=== PATIENT | male | born 1965 | race Caucasian/White ===

== ENCOUNTER 2017-01-29 16:25 | Inpatient (IN) | payer BC ==
[~2017-01-29] VITALS: Ht 177.8 cm; Wt 118.9 kg
[~2017-01-29 16:25] MED LIST: ATOR10TA66 PO; HYDR-3812 PO; IBUP-2055 PO; LEVO500T2 PO; LEVO750T9 PO; LOSA1TAB23 PO; METF1000 PO; METR500T PO
--- OUTSIDE RECORDS SUMMARY | 2017-01-29 16:46 | XMS REPORT | Continuity of Care Document ---
Author Author [employer] Organization [place] Address Unknown Phone Unavailable Care Team Providers Care Movement Assembly Final Inspector Name Role Phone [employer] Unavailable Unavailable Problems Problem Status Onset Date Classification Date Reported Comments Source Diverticulitis (disorder) Diagnosis 05/30/2016 [facility] Glycosuria (finding) 2015 Diagnosis 05/29/2016 [facility] Abdominal pain (finding) Diagnosis 05/29/2016 [facility] Diabetes mellitus type 2 (disorder) 05/25/2016 Diagnosis 05/29/2016 [facility] Coronary arteriosclerosis (disorder) 04/26/2016 Diagnosis 04/30/2016 [facility] Mixed hyperlipidemia (disorder) 04/17/2016 Diagnosis [facility] Hypertensive disorder, systemic arterial (disorder) 04/17/2016 Diagnosis 04/21/2016 [facility] Calcification of coronary artery (disorder) 04/17/2016 Diagnosis 04/21/2016 [facility], [facility] Hyperlipidemia (disorder) Diagnosis 03/03/2016 [facility] No data available for this section Problem 07/24/2016 [facility], [facility] Medications Medication Details Route Status Patient Instructions Ordering Provider Order Date Source No Known Medications No known medications Active [facility] Allergies, Adverse Reactions, Alerts Immunizations Immunization Date Given Site Status Last Updated Comments Source No data available for this section No data available for this section [facility], [facility] Cardiology Services Results Vital Signs Encounters Location Location Details Encounter Type Encounter Number Reason For Visit Attending Provider ADM Date DC Date Status Source [facility] Cancel/No Show [id number] . LAB [facility] 02/02/2016 02/02/2016 [facility] Cancel/No Show [id number] Josue Brown 02/07/2016 02/09/2016 [facility] [id number] . [facility] 02/14/2016 02/15/2016 [facility] [id number] Josue Brown 02/28/2016 02/29/2016 [facility] [id number] Outpatient [id number] Josue Brown 03/11/2016 [facility] [place] [facility] [id number] Josue Brown 03/20/2016 03/21/2016 [facility] [id number] Josue Brown II 04/17/2016 04/18/2016 [facility] Cardiology Services [place] [facility] [id number] Josue Brown 04/26/2016 [facility]27[id number] [id number] Tadnm Chris 05/25/2016 05/25/2016 Active [facility] [id number] Yana Morin 05/25/2016 05/26/2016 [facility] [id number] Clinic ( Outpatient) [id number] [facility] 2016 Active [facility] [id number] [facility] 07/20/2016 07/20/2016 [facility] [id number] Clinic ( Outpatient) [id number] Josue Brown 07/26/2016 Active [facility] [id number] Josue Brown 07/26/2016 07/20/2016 [facility] Procedures Procedure Code Date Perfomer Comments Source No data available for this section [facility] None [facility] Medicine - [place] Plan of Care Social History Assessment and Plan Family History Value Date Source Advance Directives Order Name Results Value Date Source
[2017-01-29] MEDS ORDERED: CETI1TAB61 PO (17:04)
[2017-01-29] MEDS ORDERED: GLIM4TAB PO (17:04)
[2017-01-29] MEDS ORDERED: LOSA1TAB23 PO (17:04)
[2017-01-29] MEDS ORDERED: ACETAMINOPHEN 500 MG TAB (TYLENOL) PO ONE (17:15)
[2017-01-29] MEDS ORDERED: IBUPROFEN 800 MG (MOTRIN) TAB PO ONE (17:15)
[2017-01-29] MEDS ORDERED: NS IV 1000 ML 1,000 ML IV SCH (17:15)
[2017-01-29] MEDS ORDERED: LIDOCAINE 2% 20 ML (XYLOCAINE) VIAL INJ ONE (17:15)
--- NOTE | 2017-01-29 17:19 | ED General ---
General Chief Complaint: Bite-Animal/Human/Insect Stated Complaint: POSS SPIDER BITE ON BACK Nursing Triage Note: c/o spot on back with fever Nursing Sepsis Screen: No Definite Risk Source of Information: Patient Exam Limitations: No Limitations History of Present Illness Time Seen by Provider: 17:17 Initial Comments To ER with reports of a possible bee sting or spider bite to the middle of his back. He first noticed this yesterday when he was sitting in a tractor. He felt a sharp pain in his back that we did not see anything bite him. The states there has always been an "spot" in this location but normally it is not red. Additionally, he has a fever of 102.4, heart rate of 120 and says that he has some diarrhea and left lower quadrant abdominal pain. He has a history of diverticulitis.. Additionally he also states that 6 months ago he was bitten by a tick and had a red circular spot on the back of his neck though his PCP did not treat for a tickborne illness. Severity: Moderate Allergies and Home Medications Allergies Coded Allergies: No Known Drug Allergies (Unverified , 04/03/15) Home Medications Cetirizine HCl/Pseudoephedrine 1 Each Tab.er.12h, (Reported) Glimepiride 4 Mg Tablet, (Reported) Losartan/Hydrochlorothiazide 1 Each Tablet, (Reported) Constitutional: see HPI, chills, fever EENTM: see HPI Respiratory: no symptoms reported Cardiovascular: no symptoms reported Gastrointestinal: abdominal pain Genitourinary: no symptoms reported Musculoskeletal: see HPI Skin: see HPI Psychiatric/Neurological: No Symptoms Reported Hematologic/Lymphatic: No Symptoms Reported Immunological/Allergic: no symptoms reported Past Nfwvmhm-Fjrszo-Bytnfq Hx Patient Social History Alcohol Use: Denies Use Recreational Drug Use: No Type Used: Pipe Recent Foreign Travel: No Contact w/Someone Who Travel: No Recent Infectious Disease Expo: No Seasonal Allergies Seasonal Allergies: Yes Surgeries History of Surgeries: No Respiratory History of Respiratory Disorde: No Cardiovascular History of Cardiac Disorders: Yes (HIGH TRIGLYCERIDES) Cardiac Disorders: High Cholesterol, Hypertension Neurological History of Neurological Disord: No Reproductive System Hx Reproductive Disorders: No Genitourinary History of Genitourinary Disor: No Gastrointestinal History of Gastrointestinal Di: Yes Gastrointestinal Disorders: Colitis, Chronic Diarrhea Musculoskeletal History of Musculoskeletal Dis: No Endocrine History of Endocrine Disorders: Yes Endocrine Disorders: Diabetes, Non-Insulin dep Cancer History of Cancer: No Psychosocial History of Psychiatric Problem: No Integumentary History of Skin or Integumenta: No Blood Transfusions History of Blood Disorders: No Family Medical History Family Medial History: COLITIS G8 BROTHER DRUG ABUSE Drug abuse G8 BROTHER Hypertension 19 MOTHER LUNG CANCER 19 FATHER Physical Exam Vital Signs Vital Sign - Last 12Hours 01/29/17 17:00 Temp 102.3 Pulse 124 Resp 18 B/P (MAP) 122/84 Pulse Ox 96 Capillary Refill : Less Than 3 Seconds General Appearance: No Apparent Distress, WD/WN, Obese Eyes: Bilateral Eye Normal Inspection, Bilateral Eye PERRL, Bilateral Eye EOMI HEENT: PERRL/EOMI, TMs Normal Respiratory: No Accessory Muscle Use, No Respiratory Distress Cardiovascular: Regular Rate, Rhythm, Normal Peripheral Pulses Gastrointestinal: Normal Bowel Sounds, Soft, Other (he does have left lower quadrant abdominal tenderness.) Extremity: Normal Capillary Refill, Normal Inspection Neurologic/Psychiatric: Alert, Oriented x3, No Motor/Sensory Deficits Skin: Normal Color, Warm/Dry, Other (there is a 2 cm area of erythema and tenderness to the middle of his back. This appears to be a sebaceous cyst that is inflamed or infected.) Focused Exam Evaluation Lactate Level Laboratory Tests 01/29/17 17:05: Lactic Acid Level 1.95 Lactic Acid Level Laboratory Tests Test 01/29/17 17:05 Lactic Acid Level 1.95 MMOL/L (0.50-2.00) I&D : Blade Size: 15 Packing/Drain: 1/4 [place] Drain Progress Anesthetized with 3 mL of 2 percent lidocaine without epinephrine. A 1 similar incision was then made. Dissected down to the cyst wall. Unfortunately the cyst wall was cut in the cyst was not able to be removed in whole. However we did remove quite a bit of the cyst wall in addition to some cyst contents which were curd-like whitish material. A 1/4 inch Jody drain was sutured in place with one single suture. Covered with gauze. Progress/Results/Core Measures Results/Orders Lab Results Laboratory Tests Test 01/29/17 17:05 Range/Units White Blood Count 14.4 H 4.3-11.0 10^3/uL Red Blood Count 4.69 4.35-5.85 10^6/uL Hemoglobin 15.1 13.3-17.7 G/DL Hematocrit 42 40-54 % Mean Corpuscular Volume 89 80-99 FL Mean Corpuscular Hemoglobin 32 25-34 PG Mean Corpuscular Hemoglobin Concent 36 32-36 G/DL Red Cell Distribution Width 12.2 10.0-14.5 % Platelet Count 214 130-400 10^3/uL Mean Platelet Volume 10.0 7.4-10.4 FL Neutrophils (%) (Auto) 80 H 42-75 % Lymphocytes (%) (Auto) 8 L 12-44 % Monocytes (%) (Auto) 10 0-12 % Eosinophils (%) (Auto) 2 0-10 % Basophils (%) (Auto) 0 0-10 % Neutrophils # (Auto) 11.5 H 1.8-7.8 X 10^3 Lymphocytes # (Auto) 1.1 1.0-4.0 X 10^3 Monocytes # (Auto) 1.5 H 0.0-1.0 X 10^3 Eosinophils # (Auto) 0.3 0.0-0.3 10^3/uL Basophils # (Auto) 0.0 0.0-0.1 10^3/uL Neutrophils % (Manual) 81 % Lymphocytes % (Manual) 9 % Monocytes % (Manual) 7 % Eosinophils % (Manual) 3 % Blood Morphology Comment NORMAL Sodium Level 136 135-145 MMOL/L Potassium Level 3.7 3.6-5.0 MMOL/L Chloride Level 100 98-107 MMOL/L Carbon Dioxide Level 22 21-32 MMOL/L Anion Gap 14 5-14 MMOL/L Blood Urea Nitrogen 16 7-18 MG/DL Creatinine 1.28 0.60-1.30 MG/DL Estimat Glomerular Filtration Rate 59 BUN/Creatinine Ratio 13 Glucose Level 271 H 70-105 MG/DL Lactic Acid Level 1.95 0.50-2.00 MMOL/L Calcium Level 9.0 8.5-10.1 MG/DL Total Bilirubin 0.8 0.1-1.0 MG/DL Aspartate Amino Transf (AST/SGOT) 32 5-34 U/L Alanine Aminotransferase (ALT/SGPT) 55 0-55 U/L Alkaline Phosphatase 81 40-136 U/L Total Protein 7.7 6.4-8.2 GM/DL Albumin 4.0 3.2-4.5 GM/DL My Orders Orders - QUINTEN HUERTA DENTAL RESIDENT Cbc With Automated Diff (01/29/17 17:08) Comprehensive Metabolic Panel (01/29/17 17:08) Blood Culture (01/29/17 17:08) Saline Lock/Iv-Start (01/29/17 17:08) Chest Pa/Lat (2 View) (01/29/17 17:08) Ct Abdomen/Pelvis W (01/29/17 17:08) Lactic Acid Analyzer (01/29/17 17:08) Ns Iv 1000 Ml (Sodium Chloride 0.9%) (01/29/17 17:15) Lidocaine 2% Injection 20 Ml (Xylocaine (01/29/17 17:15) Acetaminophen Tablet (Tylenol Tablet) (01/29/17 17:15) Ibuprofen Tablet (Motrin Tablet) (01/29/17 17:15) Tick Panel With Lyme Eia (01/29/17 17:19) Manual Differential (01/29/17 17:05) Medications Given in ED Current Medications Medications Dose Ordered Sig/Geoff Route Start Time Stop Time Status Last Admin Dose Admin Acetaminophen 1,000 mg ONCE ONCE PO 01/29/17 17:15 01/29/17 17:16 DC 01/29/17 17:25 1,000 MG Ibuprofen 800 mg ONCE ONCE PO 01/29/17 17:15 01/29/17 17:16 DC 01/29/17 17:25 800 MG Iohexol 100 ml ONCE ONCE IV 01/29/17 17:30 01/29/17 17:31 UNV 01/29/17 18:02 100 ML Sodium Chloride 100 ml ONCE ONCE IV 01/29/17 17:30 01/29/17 17:31 UNV 01/29/17 18:02 80 ML Vital Signs/I&O Vital Sign - Last 12Hours 01/29/17 17:00 Temp 102.3 Pulse 124 Resp 18 B/P (MAP) 122/84 Pulse Ox 96 Blood Pressure Mean: 97 Departure Communication (Admissions) Time/Spoke to Admitting Phy: 18:55 Communication I discussed the case with Dr. Freda Huston who agrees with admission, surgical consult, IV Zosyn. Time/Spoke to Consulting Phy: 18:55 Communication/Consulting Dr. Sidhu agrees to consult. Patient has questions about removing part of his colon to avoid future bouts of this recurrent sigmoid diverticulitis. I advised him that would be a conversation to have with Dr. Sidhu as I do not know these answers. Impression Impression: Primary Impression: Sigmoid diverticulitis Additional Impressions: Sepsis inflamed sebaceous cyst of back Disposition: ADMITTED INPATIENT Condition: Stable Admissions Decision to Admit Reason: Admit from ER (General) Decision to Admit/Date: Jan 29, 2017 Time/Decision to Admit Time: 18:56 Departure-Patient Inst. Referrals: SUMI CAREY MD (PCP/Family) Primary Care Physician QUINTEN HUERTA APRN Jan 29, 2017 17:19
[2017-01-29 17:24] LABS: BASOPHILS % (AUTO) 0 % (0-10); EOSINOPHILS # (AUTO) 0.3 10^3/uL (0.0-0.3); EOSINOPHILS % (AUTO) 2 % (0-10); LYMPHOCYTES # (AUTO) 1.1 X 10^3 (1.0-4.0); LYMPHOCYTES % (AUTO) 8 % (12-44); MEAN CORPUSCULAR HEMOGLOBIN 32 PG (25-34); MEAN CORPUSCULAR HGB CONC 36 G/DL (32-36); MEAN CORPUSCULAR VOLUME 89 FL (80-99); MONOCYTES # (AUTO) 1.5 X 10^3 (0.0-1.0); MONOCYTES % (AUTO) 10 % (0-12); NEUTROPHILS # (AUTO) 11.5 X 10^3 (1.8-7.8); NEUTROPHILS % (AUTO) 80 % (42-75); PLATELET COUNT 214 10^3/uL (130-400); RED BLOOD COUNT 4.69 10^6/uL (4.35-5.85); RED CELL DISTRIBUTION WIDTH 12.2 % (10.0-14.5); WHITE BLOOD COUNT 14.4 10^3/uL (4.3-11.0)
[2017-01-29] MEDS ORDERED: IOHEXOL 350 MG/ML 100 ML (OMNIPAQUE 350) VIAL IV ONE (17:30)
[2017-01-29] MEDS ORDERED: NS 100 ML (IVPB) BAG IV ONE (17:30)
[2017-01-29 17:43] LABS: BILIRUBIN,TOTAL 0.8 MG/DL (0.1-1.0); CREATININE SERUM 1.28 MG/DL (0.60-1.30); POTASSIUM 3.7 MMOL/L (3.6-5.0); TOTAL PROTEIN 7.7 GM/DL (6.4-8.2)
[2017-01-29 17:50] LABS: EOSINOPHILS % (MANUAL) 3 %; LYMPHOCYTES % (MANUAL) 9 %; NEUTROPHILS % (MANUAL) 81 %
--- NOTE | 2017-01-29 18:35 | Diagnostic Imaging Report ---
PROCEDURE: CT abdomen and pelvis with contrast. TECHNIQUE: Multiple contiguous axial images were obtained through the abdomen and pelvis after administration of intravenous contrast. INDICATION: Fever and weakness. Possible spider bite on back. COMPARISON is made with a CT examination from March 01, 2016. FINDINGS: The visualized lung bases demonstrate mild dependent atelectasis. The lungs are otherwise clear. There is no pericardial or pleural effusion. Diffuse hepatic steatosis is demonstrated. There is no focal intrahepatic abnormality. The gallbladder is contracted. There are small gallstones with but no evidence of biliary dilatation. The spleen appears normal. There is a fat-containing left adrenal mass which is unchanged from the prior exam. The right adrenal gland is normal. The pancreas is unremarkable. The kidneys enhance normally and appear nonobstructed. The small and large bowel are normal in caliber without evidence of obstruction. There is severe sigmoid diverticulitis present with marked sigmoid thickening and adjacent fat stranding but no evidence of free air or abscess. There is no free fluid. The appendix is normal. There is moderate stool within the colon. The urinary bladder is unremarkable. There are fat-containing inguinal hernias. There is no pathologic adenopathy. The aorta is normal in caliber. There are degenerative features within the spine but no acute or suspicious osseous abnormality. IMPRESSION: 1. Severe sigmoid diverticulitis with marked sigmoid colonic thickening and adjacent inflammatory fat stranding but no evidence of obstruction, free air or abscess. Given an interval recurrence of diverticulitis at the same level as on prior comparison examination, would recommend followup with colonoscopy after treatment. 2. 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 3. Hepatic steatosis. 4. Cholelithiasis without biliary dilatation or gallbladder distention. Dictated by: Dictated on workstation # [id number]
--- NOTE | 2017-01-29 18:44 | Diagnostic Imaging Report ---
EXAM: PA and lateral chest. INDICATION: Spider bite. Fever and weakness. FINDINGS: The lungs appear clear without focal infiltrate or evidence of effusion. There is no pneumothorax. The heart size and mediastinal contours are appropriate. There is no osseous abnormality. IMPRESSION: No radiographic evidence of an acute cardiopulmonary process. Dictated by: Dictated on workstation # [id number]
[2017-01-29] MEDS ORDERED: PIPERACILLIN SODIUM/TAZOBACTAM 4.5 GM in NS (IVPB) 100 ML IV ONE (19:00)
--- OUTSIDE RECORDS SUMMARY | 2017-01-29 19:18 | XMS REPORT | Continuity of Care Document ---
Author Author [employer] Organization [place] Address Unknown Phone Unavailable Care Team Providers Care Manager Of Case Management Name Role Phone [employer] Unavailable Unavailable Problems Problem Status Onset Date Classification Date Reported Comments Source Diverticulitis (disorder) Diagnosis 05/30/2016 [facility] Glycosuria (finding) 2015 Diagnosis 05/29/2016 [facility] Abdominal pain (finding) Diagnosis 05/29/2016 [facility] Diabetes mellitus type 2 (disorder) 05/25/2016 Diagnosis 05/29/2016 [facility] Coronary arteriosclerosis (disorder) 04/26/2016 Diagnosis 04/30/2016 [facility] Mixed hyperlipidemia (disorder) 04/17/2016 Diagnosis [facility] Hypertensive disorder, systemic arterial (disorder) 04/17/2016 Diagnosis 04/21/2016 [facility] Calcification of coronary artery (disorder) 04/17/2016 Diagnosis 04/21/2016 [facility], [facility] Hyperlipidemia (disorder) Diagnosis 03/03/2016 [facility] No data available for this section Problem 07/24/2016 [facility], [facility] Medications Medication Details Route Status Patient Instructions Ordering Provider Order Date Source No Known Medications No known medications Active [facility] Allergies, Adverse Reactions, Alerts Immunizations Immunization Date Given Site Status Last Updated Comments Source No data available for this section No data available for this section [facility], [facility] Cardiology Services Results Vital Signs Encounters Location Location Details Encounter Type Encounter Number Reason For Visit Attending Provider ADM Date DC Date Status Source [facility] Cancel/No Show [id number] . [facility] 02/02/2016 02/02/2016 [facility] Cancel/No Show [id number] Josue Brown 02/07/2016 02/09/2016 [facility] [id number] . [facility] 02/14/2016 02/15/2016 [facility] [id number] Josue Brown 02/28/2016 02/29/2016 [facility] [id number] Outpatient [id number] Josue Brown 03/11/2016 [facility] [place] [facility] [id number] Josue Brown 03/20/2016 03/21/2016 [facility] [id number] Josue Brown II 04/17/2016 04/18/2016 [facility] Cardiology Services [place] [facility] [id number] Josue Brown 04/26/2016 [facility]/27[id number] [id number] Tadsd Chris 05/25/2016 05/25/2016 Active [facility] [id number] Yana Morin 05/25/2016 05/26/2016 [facility] [id number] Clinic ( Outpatient) [id number] [facility] 2016 Active [facility] [id number] [facility] 07/20/2016 07/20/2016 [facility] [id number] Clinic ( Outpatient) [id number] Josue Brown 07/26/2016 Active [facility] [id number] Josue Brown 07/26/2016 07/20/2016 [facility] Procedures Procedure Code Date Perfomer Comments Source No data available for this section [facility] None [facility] Medicine - [place] Plan of Care Social History Assessment and Plan Family History Value Date Source Advance Directives Order Name Results Value Date Source
[2017-01-29 20:00] VITALS: BP 114/65
[2017-01-29] MEDS ORDERED: NS IV 1000 ML 1,000 ML ONE (20:19)
[2017-01-29] MEDS ORDERED: CATHETER FLUSH 10 ML SYR IV PRN (21:30)
[2017-01-29] MEDS: NS IV 1000 ML 1,000 ML IV SCH (21:30)
[2017-01-29] MEDS ORDERED: fentaNYL INJECTION 100 MCG/2 ML AMP IV PRN (21:30)
[2017-01-29] MEDS: CATHETER FLUSH 10 ML SYR IV SCH (22:55)
[2017-01-30] VITALS: BP 112/59
[2017-01-30] MEDS: PIPERACILLIN/TAZOBACTAM 4.5 GM/NS100 ML IVPB IV SCH ×6 (01:30→16:20)
[2017-01-30] MEDS ORDERED: PIPERACILLIN SODIUM/TAZOBACTAM 4.5 GM in NS (IVPB) 100 ML IV SCH (03:15)
[2017-01-30 03:35] VITALS: BP 140/63
[2017-01-30] MEDS: NS IV 1000 ML 1,000 ML IV SCH ×3 (04:22→21:02)
[2017-01-30] MEDS: ACETAMINOPHEN 325 MG TABLET/CAPLET (TYLENOL) PO PRN ×3 (04:22→18:52)
[2017-01-30] MEDS: CATHETER FLUSH 10 ML SYR IV SCH ×3 (05:26→22:09)
[2017-01-30 06:51] LABS: BASOPHILS % (AUTO) 0 % (0-10); EOSINOPHILS # (AUTO) 0.3 10^3/uL (0.0-0.3); EOSINOPHILS % (AUTO) 3 % (0-10); LYMPHOCYTES # (AUTO) 0.7 X 10^3 (1.0-4.0); LYMPHOCYTES % (AUTO) 9 % (12-44); MEAN CORPUSCULAR HEMOGLOBIN 33 PG (25-34); MEAN CORPUSCULAR HGB CONC 36 G/DL (32-36); MEAN CORPUSCULAR VOLUME 90 FL (80-99); MEAN PLATELET VOLUME 9.9 FL (7.4-10.4); MONOCYTES # (AUTO) 0.8 X 10^3 (0.0-1.0); MONOCYTES % (AUTO) 11 % (0-12); NEUTROPHILS # (AUTO) 5.9 X 10^3 (1.8-7.8); NEUTROPHILS % (AUTO) 77 % (42-75); PLATELET COUNT 145 10^3/uL (130-400); RED BLOOD COUNT 4.09 10^6/uL (4.35-5.85); RED CELL DISTRIBUTION WIDTH 12.3 % (10.0-14.5); WHITE BLOOD COUNT 7.7 10^3/uL (4.3-11.0)
[2017-01-30 08:00] VITALS: BP 135/71
[2017-01-30] MEDS: inSUlin ASPART (NovoLOG) 1 UNIT/0.01 ML (CHARGE PER UNIT) SC SCH ×3 (11:22→21:02)
[2017-01-30] MEDS: IBUPROFEN 600 MG (MOTRIN) TAB PO PRN (11:22)
[2017-01-30 12:00] VITALS: BP 140/76
--- NOTE | 2017-01-30 13:40 | Consultation ---
History of Present Illness History of Present Illness Patient Consulted On(oscar/time) 01/30/17 13:35 Time Seen by Provider: 13:11 History of Present Illness Surgery asked to consult regarding Diverticulitis HPI: Pt presented to ER yesterday with reports of a possible bee sting or spider bite to the middle of his back. He first noticed this yesterday when he was sitting in a tractor. He felt a sharp pain in his back that we did not see anything bite him. The states there has always been an "spot" in this location but normally it is not red. Additionally, he has a fever of 102.4, heart rate of 120 and says that he has some diarrhea and left lower quadrant abdominal pain. He has a history of diverticulitis. CT performed last night read by radiology as "worse Diverticulitis compared with last CT". Previous episode was appx 11 months ago. When seen today pt states pain is minimal, maybe 2-3 out of 10 on 1-10 scale. Denies N/V. He states he gets this LLQ pain weekly and sometimes it last for a few days. He states he gets severe (10 out of 10) pain once a month; "makes me pull the truck over". He reports that he had a colonoscopy about 6 months ago; which showed Diverticulosis and "a couple of polyps". He does not take ABX regularly for the pain; "I use stuff to clean me out". He did have an elevated WBC when he was admitted yesterday; today it is back to normal. Allergies and Home Medications Allergies Coded Allergies: No Known Drug Allergies (Unverified , 04/03/15) Home Medications Cetirizine HCl/Pseudoephedrine 1 Each Tab.er.12h, (Reported) Glimepiride 4 Mg Tablet, PO DAILY, (Reported) Losartan/Hydrochlorothiazide 1 Each Tablet, DAILY, (Reported) Past Elkqnij-Gbfrjp-Bqeljt Hx Patient Social History Alcohol Use: Denies Use Recreational Drug Use: No Smoking Status: Former Smoker Former Smoker, Quit: Jan 29, 1991 Type Used: Cigarettes, Smokeless Tobacco Recent Foreign Travel: Yes Contact w/Someone Who Travel: No Recent Infectious Disease Expo: No Recent Hopitalizations: No Physical Abuse Screen: No Sexual Abuse: No Seasonal Allergies Seasonal Allergies: Yes Surgeries History of Surgeries: No Respiratory History of Respiratory Disorde: No Cardiovascular History of Cardiac Disorders: Yes (HIGH TRIGLYCERIDES) Cardiac Disorders: High Cholesterol, Hypertension Neurological History of Neurological Disord: No Reproductive System Hx Reproductive Disorders: No Genitourinary History of Genitourinary Disor: No Gastrointestinal History of Gastrointestinal Di: Yes Gastrointestinal Disorders: Colitis, Chronic Diarrhea Musculoskeletal History of Musculoskeletal Dis: No Endocrine History of Endocrine Disorders: Yes Endocrine Disorders: Diabetes, Non-Insulin dep HEENT History of HEENT Disorders: No Cancer History of Cancer: No Psychosocial History of Psychiatric Problem: No Integumentary History of Skin or Integumenta: No Blood Transfusions History of Blood Disorders: No Family Medical History Significant Family History: Cancer (Father), GI Disease (Brother), Hypertension (Mother) Family Medial History: COLITIS G8 BROTHER DRUG ABUSE Drug abuse G8 BROTHER Hypertension 19 MOTHER LUNG CANCER 19 FATHER Review of Systems-General Constitutional: No chills, No diaphoresis, No fever, weakness EENTM: No blurred vision, No vision loss, No mouth swelling, No epistaxis, No throat swelling Respiratory: No cough, No dyspnea on exertion, No hemoptysis Cardiovascular: No chest pain, No edema, No palpitations Gastrointestinal: RLQ, LLQ, abdominal pain, diarrhea, No hematemesis Genitourinary: No dysuria, No frequency, No hematuria Musculoskeletal: No back pain, No gout, No joint pain, No joint swelling Skin: No dryness, No hx of skin cancer, No lesions Psychiatric/Neurological: Denies Anxiety, Denies Depressed, Denies Headache, Denies Seizure, Denies Tremors Other Pt does have DM, but denies heat or cold intolerance. Denies any abnormal bleeding or bruising. Physical Exam-General Problems Physical Exam Vital Signs Vital Sign - Last 12Hours 01/29/17 01/29/17 17:00 19:50 Temp 102.3 Pulse 124 Resp 18 B/P (MAP) 122/84 Pulse Ox 96 O2 Delivery Room Air Capillary Refill : Less Than 3 Seconds General Appearance: WD/WN, no apparent distress, obese Eyes: Bilateral Eye PERRL, Bilateral Eye EOMI HEENT: pharynx normal, No scleral icterus (R), No scleral icterus (L), No pale conjunctivae (R), No pale conjunctivae (L) Neck: non-tender, full range of motion, supple, normal inspection Respiratory: chest non-tender, lungs clear, normal breath sounds, no respiratory distress, no accessory muscle use Cardiovascular: regular rate, rhythm, no edema, no murmur Gastrointestinal: soft, no organomegaly, no pulsatile mass, No guarding, tenderness (LLQ mostly, some suprapubic and very minimal RLQ) Rectal: deferred Back: no CVA tenderness, no vertebral tenderness Extremities: normal range of motion, non-tender, normal inspection, no pedal edema, no calf tenderness, normal capillary refill Neurologic/Psychiatric: caponizer II-XII nml as tested, no motor/sensory deficits, alert, normal mood/affect, oriented x 3 Skin: normal color, warm/dry Lymphatic: no adenopathy (neck, axilla or groin) Data Review Labs Laboratory Tests 01/29/17 17:05: White Blood Count 14.4H, Red Blood Count 4.69, Hemoglobin 15.1, Hematocrit 42, Mean Corpuscular Volume 89, Mean Corpuscular Hemoglobin 32, Mean Corpuscular Hemoglobin Concent 36, Red Cell Distribution Width 12.2, Platelet Count 214, Mean Platelet Volume 10.0, Neutrophils (%) (Auto) 80H, Lymphocytes (%) (Auto) 8L , Monocytes (%) (Auto) 10, Eosinophils (%) (Auto) 2, Basophils (%) (Auto) 0, Neutrophils # (Auto) 11.5H, Lymphocytes # (Auto) 1.1, Monocytes # (Auto) 1.5H, Eosinophils # (Auto) 0.3, Basophils # (Auto) 0.0, Neutrophils % (Manual) 81, Lymphocytes % (Manual) 9, Monocytes % (Manual) 7, Eosinophils % (Manual) 3, Blood Morphology Comment NORMAL, Sodium Level 136, Potassium Level 3.7, Chloride Level 100, Carbon Dioxide Level 22, Anion Gap 14, Blood Urea Nitrogen 16, Creatinine 1.28, Estimat Glomerular Filtration Rate 59, BUN/Creatinine Ratio 13, Glucose Level 271H, Lactic Acid Level 1.95, Calcium Level 9.0, Total Bilirubin 0.8, Aspartate Amino Transf (AST/SGOT) 32, Alanine Aminotransferase ( ALT/SGPT) 55, Alkaline Phosphatase 81, Total Protein 7.7, Albumin 4.0 01/30/17 06:30: White Blood Count 7.7, Red Blood Count 4.09L, Hemoglobin 13.3, Hematocrit 37L, Mean Corpuscular Volume 90, Mean Corpuscular Hemoglobin 33, Mean Corpuscular Hemoglobin Concent 36, Red Cell Distribution Width 12.3, Platelet Count 145, Mean Platelet Volume 9.9, Neutrophils (%) (Auto) 77H, Lymphocytes (%) (Auto) 9L , Monocytes (%) (Auto) 11, Eosinophils (%) (Auto) 3, Basophils (%) (Auto) 0, Neutrophils # (Auto) 5.9, Lymphocytes # (Auto) 0.7L, Monocytes # (Auto) 0.8, Eosinophils # (Auto) 0.3, Basophils # (Auto) 0.0 01/30/17 06:48: Glucometer 236H 01/30/17 11:06: Glucometer 266H Assessment/Plan Assessment/Plan Assessment/Plan 1. Diverticulitis 2. DM 3. Obesity I sat down with pt and discussed what Diverticulitis means; versus Diverticulosis. We went over how this occurs and how pressure thru the intestine makes it worse (mostly red meat). I printed out a information packet for Diverticulitis and one for Low Residue diet. I also went over indications for surgery (now it is Diverticulitis episodes that affect ADL's) and why we are trying to avoid what happens with a very bad perforation (ostomy bag). I also went over my reasoning behind keeping him in the hospital for one more day on clear liquids, advancing to soft diet tomorrow for lunch, and then sending him home. He knows that in future he needs to go on clear liquids sooner (not to try and "clean himself out") and probably get ABX sooner from his primary care doctor. All questions answered to his satisfaction. Thank you for this consult. Clinical Quality Measures DVT/VTE Risk/Contraindication: Risk Factor Score Per Nursin RFS Level Per Nursing on Admit: 4+=Very High WOODY BELLA DO Jan 30, 2017 13:40
[2017-01-30] MEDS ORDERED: ATOR10TA66 PO (13:46)
--- NOTE | 2017-01-30 14:11 | History & Physical-Hospitalist ---
HPI History of Present Illness: HPI/Chief Complaint The patient is a 51-year-old white male who was admitted yesterday afternoon after he presented to the emergency room with fever and severe left lower quadrant abdominal pain. He had a sore area on his back which He feared was a spider bite. He proved to be an inflamed epidermal inclusion cyst and was evacuated by [facility] VERITO. Additional workup showed CT findings consistent with severe diverticulitis and inflammation with the sigmoid thickening. He reports that he had a previous episode of this approximately a year ago. He had colonoscopy performed at [place] and a couple of polyps were removed. Several family members have also had diverticulitis. He admits to eating a low bulk diet. His fever was 102+ on presentation. White count was 14,000. He reports that he is already feeling less pain than he experienced yesterday. Source: patient Exam Limitations: no limitations Date Seen 01/30/17 Time Seen by Provider: 14:06 Attending Physician Erinn Montero MD PCP Josue Brown MD Referring Physician Date of Admission Jan 29, 2017 at 18:33 Home Medications & Allergies Home Medications Reviewed patient Home Medication Reconciliation Form Allergies Allergies Coded Allergies No Known Drug Allergies ([id number]/15) Past Waiovzu-Evegve-Joiwlx Hx Patient Social History Alcohol Use: Denies Use Recreational Drug Use: No Smoking Status: Former Smoker Former Smoker, Quit: Jan 29, 1991 Type Used: Cigarettes, Smokeless Tobacco Physical Abuse Screen: No Sexual Abuse: No Recent Foreign Travel: Yes Contact w/other who traveled: No Recent Hopitalizations: No Recent Infectious Disease Expo: No Seasonal Allergies Seasonal Allergies: Yes Surgeries No Respiratory No Cardiovascular Yes (HIGH TRIGLYCERIDES) High Cholesterol, Hypertension Neurological No Reproductive System Hx Reproductive Disorders: No Genitourinary No Gastrointestinal Yes Colitis, Chronic Diarrhea Musculoskeletal No Endocrine History of Endocrine Disorders: Yes Endocrine Disorders: Diabetes, Non-Insulin dep HEENT History of HEENT Disorders: No Cancer No Psychosocial History of Psychiatric Problem: No Integumentary History of Skin or Integumenta: No Blood Transfusions History of Blood Disorders: No Family Medical History Significant Family History: Cancer (Father), GI Disease (Brother), Hypertension (Mother) Family Hx: COLITIS G8 BROTHER DRUG ABUSE Drug abuse G8 BROTHER Hypertension 19 MOTHER LUNG CANCER 19 FATHER Review of Systems Constitutional: see HPI, diaphoresis, fever EENTM: no symptoms reported Respiratory: no symptoms reported Cardiovascular: no symptoms reported Gastrointestinal: see HPI, abdominal pain (LLQ) Genitourinary: no symptoms reported Musculoskeletal: no symptoms reported Skin: other (epidermal inclusion cyst post evacuation mid scapular) Psychiatric/Neurological: No Symptoms Reported Physical Exam Physical Exam Vital Signs Vital Sign - Last 12Hours 01/29/17 01/29/17 17:00 19:50 Temp 102.3 Pulse 124 Resp 18 B/P (MAP) 122/84 Pulse Ox 96 O2 Delivery Room Air Capillary Refill : Less Than 3 Seconds General Appearance: Mild Distress Eyes: Bilateral Eye Normal Inspection HEENT: Normal ENT Inspection Neck: Normal Inspection Respiratory: Chest Non Tender, Lungs Clear, Normal Breath Sounds, No Accessory Muscle Use, No Respiratory Distress Cardiovascular: Regular Rate, Rhythm, No Edema, No Gallop, No JVD, No Murmur, Normal Peripheral Pulses Gastrointestinal: Normal Bowel Sounds, No Organomegaly, No Pulsatile Mass, Non Tender, Soft Back: Other (dressing is noted intrascapular) Extremity: Normal Capillary Refill, Normal Inspection, Normal Range of Motion, Non Tender, No Calf Tenderness, No Pedal Edema Skin: Normal Color, Warm/Dry Lymphatic: No Adenopathy Results Results/Procedures Lab Laboratory Tests 01/29/17 17:05 01/30/17 06:30 Assessment/Plan Admission Diagnosis Sigmoid diverticulitis. 2.epidermal inclusion cyst. Assessment and Plan Clear liquid diet, IV fluids, empiric antibiotics Clinical Quality Measures DVT/VTE Risk/Contraindication: Risk Factor Score Per Nursin RFS Level Per Nursing on Admit: 4+=Very High MASHA WILSON MD Jan 30, 2017 14:11
[2017-01-30 15:40] VITALS: BP 134/67
[2017-01-30 20:14] VITALS: BP 149/76
[2017-01-31 00:30] VITALS: BP 122/69
[2017-01-31] MEDS: PIPERACILLIN/TAZOBACTAM 4.5 GM/NS100 ML IVPB IV SCH ×4 (01:09→09:22)
[2017-01-31] MEDS: IBUPROFEN 600 MG (MOTRIN) TAB PO PRN (02:01)
[2017-01-31 04:00] VITALS: BP 127/58
[2017-01-31] MEDS: NS IV 1000 ML 1,000 ML IV SCH (05:24)
[2017-01-31] MEDS: CATHETER FLUSH 10 ML SYR IV SCH ×2 (06:29→14:01)
[2017-01-31] MEDS: inSUlin ASPART (NovoLOG) 1 UNIT/0.01 ML (CHARGE PER UNIT) SC SCH ×2 (06:30→11:26)
[2017-01-31] MEDS ORDERED: GLIMEPIRIDE 4 MG (AMARYL) TAB PO SCH (07:00)
[2017-01-31 07:54] LABS: LYME AB INTERP Negative (Negative)
[2017-01-31 08:00] VITALS: BP 132/84
--- NOTE | 2017-01-31 08:26 | Progress Note ---
Subjective Time Seen by Provider: 08:01 Subjective/Events-last exam Pt seen and examined, states his pain is "much better today". Denies nausea or vomiting. He is tolerating clears, would like to advance diet and wants to go home. Review of Systems General: No Chills, No Night Sweats HEENT: No Head Aches, No Visual Changes Pulmonary: No Dyspnea, No Cough Cardiovascular: No: Chest Pain, Palpitations Gastrointestinal: No: Nausea, Vomiting, Abdominal Pain Objective Exam Vital Signs Date Time Temp Pulse Resp B/P (MAP) Pulse Ox O2 Delivery O2 Flow Rate FiO2 01/31/17 08:00 97.7 66 20 132/84 96 Room Air 01/31/17 04:00 99.0 82 16 127/58 95 Room Air 01/31/17 00:30 98.9 84 18 122/69 98 Room Air 01/30/17 21:00 99.9 01/30/17 20:14 101.3 90 18 149/76 96 Room Air 01/30/17 18:52 99.2 01/30/17 15:40 98.9 84 18 134/67 94 Room Air 01/30/17 12:00 99.8 88 20 140/76 94 Room Air 01/30/17 08:42 100.7 Capillary Refill : Less Than 3 Seconds General Appearance: No Apparent Distress, WD/WN HEENT: Pharynx Normal, No Pale Conjunctivae (L), No Pale Conjunctivae (R) Neck: Full Range of Motion, Non Tender Respiratory: Chest Non Tender, Lungs Clear, Normal Breath Sounds, No Accessory Muscle Use, No Respiratory Distress Cardiovascular: Regular Rate, Rhythm, No Edema, No Gallop, No JVD, No Murmur, Normal Peripheral Pulses Gastrointestinal: soft, no organomegaly, no pulsatile mass, No guarding, tenderness (LLQ mostly, some suprapubic and very minimal RLQ- now only with deep palpation) Extremity: Normal Capillary Refill, Normal Inspection, Normal Range of Motion, Non Tender, No Calf Tenderness, No Pedal Edema Neurologic/Psychiatric: Alert, Oriented x3 Skin: Normal Color, Warm/Dry Results Lab Laboratory Tests 01/30/17 11:06: Glucometer 266H 01/30/17 15:57: Glucometer 249H 01/30/17 20:20: Glucometer 243H 01/31/17 05:13: Glucometer 198H Microbiology 01/29/17 Blood Culture - Preliminary, Resulted No growth 01/29/17 Gram Stain - Final, Resulted 01/29/17 Wound Culture - Preliminary, Resulted Yuliet Roy Neg (Field [employer]) See Comments Assessment/Plan Assessment/Plan Assessment/Plan 1. Diverticulitis 2. DM 3. Obesity Would recommend switching pt to oral ABX, increase to soft diet and send him home after lunch. I will see him in my office in 2 weeks. We went over some dietary questions he had, no other questions. Clinical Quality Measures DVT/VTE Risk/Contraindication: Risk Factor Score Per Nursin RFS Level Per Nursing on Admit: 4+=Very High WOODY BELLA DO Jan 31, 2017 08:26
[2017-01-31] MEDS ORDERED: ATORVASTATIN 10 MG (LIPITOR) TABLET PO SCH (09:00)
[2017-01-31] MEDS ORDERED: AMOX-358 PO (10:25)
--- NOTE | 2017-01-31 10:26 | Discharge Summary-Hospitalist ---
Diagnosis/Chief Complaint Date of Admission Jan 29, 2017 at 18:33 Date of Discharge Discharge Date: Jan 31, 2017 Admission Diagnosis Sigmoid diverticulitis. 2.epidermal inclusion cyst. Discharge Diagnosis Sigmoid diverticulitis s/p epidermal inclusion cyst I&D in ER Diabetes mellitus Hypertension Hyperlipidemia Obesity Colon polyps Discharge Summary Discharge Physical Examination Allergies: Coded Allergies: No Known Drug Allergies (Unverified , 04/03/15) Vitals & I&Os Vital Signs Date Time Temp Pulse Resp B/P (MAP) Pulse Ox O2 Delivery O2 Flow Rate FiO2 01/31/17 08:00 97.7 66 20 132/84 96 Room Air Hospital Course Hospital course: Patient had a brief hospital course he was admitted placed on IV fluids IV antibiotics empirically and monitor closely including wound care for the cyst that was drained in the ER. All cultures reviewed and he felt well enough after the advancement of his diet that he was deemed stable for discharge from general surgery standpoint and will discharge on antibiotics with close follow-up with general surgery and primary care provider. Labs (last 24 hrs) Laboratory Tests 01/30/17 15:57: Glucometer 249H 01/30/17 20:20: Glucometer 243H 01/31/17 05:13: Glucometer 198H 01/31/17 10:46: Glucometer 259H Microbiology 01/29/17 Blood Culture - Preliminary, Resulted No growth 01/29/17 Gram Stain - Final, Resulted 01/29/17 Wound Culture - Preliminary, Resulted Staph, Coag Neg (Or Manager) See Comments Pending Labs Laboratory Tests 01/31/17 05:13: Glucometer 198 01/31/17 10:46: Glucometer 259 Discharge Home Medications: Active Scripts Active Augmentin 875-125 Tablet (Amoxicillin/Potassium Clav) 1 Each Tablet 1 Each PO BID Reported Atorvastatin Calcium 10 Mg Tablet 10 Mg PO DAILY Losartan-Hctz 100-25 mg Tab (Losartan/Hydrochlorothiazide) 1 Each Tablet 1 Tab PO DAILY Glimepiride 4 Mg Tablet 4 Mg PO DAILY Zyrtec-D Tablet (Cetirizine HCl/Pseudoephedrine) 1 Each Tab.er.12h 1 Tab PO Q12H PRN Instructions to patient/family Please see electonic discharge instructions given to patient. Clinical Quality Measures DVT/VTE Risk/Contraindication: Risk Factor Score Per Nursin RFS Level Per Nursing on Admit: 4+=Very High PORSCHE ALLISON DO Jan 31, 2017 10:26
[2017-01-31 13:54] LABS: EHRLICHIA CHAFFEENSIS G ABY <1:16 (<1:16)
[2017-01-31 14:40] VITALS: BP 132/84
[2017-01-31 15:29] LABS: IGG ROCKY MOUNTAIN SPOTTED FEV <1:16 (<1:16)
[2017-01-31 15:30] LABS: IGM ROCKY MOUNTAIN SPOTTED FEV <1:10 (<1:10)
[2017-02-01 10:22] LABS: TULAREMIA ANTIBODY <1:20
--- NOTE | 2017-02-01 13:53 | Physician Query Clarification ---
PQ-Conflicting Diagnosis Admission/Discharge Admission Date: Jan 29, 2017 at 18:33 Discharge Date: Jan 31, 2017 at 14:45 The medical record reflects the following clinical scenario: History/Risk Factors: History diverticulitis, diabetes Clinical Findings: T102.4, P120, WBC 14.4, lactic acid 1.95, LLQ pain Treatment: IV fluids and IV ABX Question: Do you agree with the impression of Sepsis per ER provider Sedrick Herman? Please document a response below. PHYSICIAN RESPONSE Do you agree w/Consulting Dx?: Yes In responding to this query, please exercise your independent professional judgment. The purpose of this communication is to more accurately reflect the complexity of your patients condition. The fact that a question is asked does not imply that any particular answer is desired or expected. Thank you for your timely response to this clarification. Requestors name: Clay THIS PHYSICIAN QUERY FORM IS A PERMANENT PART OF THE MEDICAL RECORD CLAY BEST Feb 01, 2017 13:53 PORSCHE ALLISON DO Feb 02, 2017 11:13
== END 2017-01-31 14:45 | disposition home or self-care (01) | DRG 872 ==
LOC: EDUNIT# 16:25 → ER 16:27 → 4TH 18:33
PROVIDERS: ADMIT Family Medicine; ATTEND Family Medicine
PROC: 0H96XZZ Drainage of Back Skin, External Approach (ICD-10-PCS; principal; 2017-01-29)
DX: A41.9 Sepsis, unspecified organism (principal); K57.32 Diverticulitis of large intestine without perforation or abscess without bleeding; L72.0 Epidermal cyst; E11.9 Type 2 diabetes mellitus without complications; I10 Essential (primary) hypertension; E78.5 Hyperlipidemia, unspecified; E66.9 Obesity, unspecified; K63.5 Polyp of colon; Z68.37 Body mass index [BMI] 37.0-37.9, adult
CPT/HCPCS: 36415; 71020; 74177; 80053; 82962; 83605; 85007; 85025; 85027; 86618; 86666; 86668; 86757; 87040; 87070; 87205; 96361; 96365

== ENCOUNTER 2019-03-31 11:33 | Day surgery (SDC) | payer BC ==
[~2019-03-31] VITALS: Ht 177.8 cm; Wt 112.0 kg
[~2019-03-31 11:33] MED LIST changes: +ACHD5005 PO; +AMOX-358 PO; +CETI1TAB61 PO; +GLIM4TAB PO; -HYDR-3812 PO; +METF-399 PO; -METF1000 PO
--- NOTE | 2019-03-31 12:02 | ED Chest Pain ---
General Chief Complaint: Chest Pain Stated Complaint: CHEST PAIN Source: patient Exam Limitations: no limitations History of Present Illness Date Seen by Provider: Mar 31, 2019 Time Seen by Provider: 11:48 Initial Comments The patient is a pleasant 54-year-old male presents for evaluation of intermittent chest discomfort which is worse when standing or sitting up. He states it seems to get better when he is lying flat. He took a baby aspirin at home today before coming. He denies any discomfort currently. He does report a family history of cardiac problems. He is a nonsmoker. The discomfort is not pleuritic or exertional. He denies shortness of breath, nausea or vomiting, dizziness, syncope, diaphoresis, palpitations, fevers or chills. He is alert and oriented 4, calm, and appears to be in no distress at this time. Timing/Duration: 2-3 days Severity/Quality: moderate Location: substernal Radiation: no radiation Activities at Onset: none Prior CP/Workup: no prior chest pain ASA po MVA REACTOR OPERATOR: Yes NTG SL MVA REACTOR OPERATOR: No Allergies and Home Medications Allergies Coded Allergies: No Known Drug Allergies (Unverified , 04/03/15) Home Medications Amoxicillin/Potassium Clav 1 Each Tablet, 1 EACH PO BID Prescribed by: PORSCHE ALLISON on 01/31/17 1025 Atorvastatin Calcium 10 Mg Tablet, 10 MG PO DAILY, (Reported) Cetirizine HCl/Pseudoephedrine 1 Each Tab.er.12h, 1 TAB PO Q12H PRN for ALLERGIES, (Reported) Glimepiride 4 Mg Tablet, 4 MG PO DAILY, (Reported) Losartan/Hydrochlorothiazide 1 Each Tablet, 1 TAB PO DAILY, (Reported) Patient Home Medication List Home Medication List Reviewed: Yes Review of Systems Review of Systems Constitutional: no symptoms reported EENTM: No Symptoms Reported Respiratory: No Symptoms Reported, See HPI Cardiovascular: Chest Pain Gastrointestinal: No Symptoms Reported, See HPI Genitourinary: No Symptoms Reported, See HPI Psychiatric/Neurological: No Symptoms Reported, See HPI Endocrine: No Symptoms Reported, See HPI Hematologic/Lymphatic: No Symptoms Reported, See HPI All Other Systems Reviewed Negative Unless Noted: Yes Past Bymcoah-Iolzlz-Ehspsg Hx Past Med/Social Hx: Reviewed Nursing Past Med/Soc Hx Patient Social History Type Used: Cigarettes, Smokeless Tobacco Former Smoker, Quit: Jan 29, 1991 Recent Foreign Travel: Yes ([place], [place], [facility]) Recent Hopitalizations: No Seasonal Allergies Seasonal Allergies: Yes Past Medical History Surgeries: No Respiratory: No Cardiac: Yes (HIGH TRIGLYCERIDES) High Cholesterol, Hypertension Neurological: No Reproductive Disorders: No Genitourinary: No Gastrointestinal: Yes Colitis, Chronic Diarrhea Musculoskeletal: No Endocrine: Yes Diabetes, Non-Insulin dep HEENT: No Cancer: No Psychosocial: No Integumentary: No Blood Disorders: No Family Medical History COLITIS G8 BROTHER DRUG ABUSE Drug abuse G8 BROTHER Hypertension 19 MOTHER LUNG CANCER 19 FATHER Cancer, GI Disease, Hypertension Physical Exam Vital Signs Vital Signs - First Documented 03/31/19 11:42 Temp 36.6 Pulse 89 Resp 20 B/P (MAP) 122/70 (87) Pulse Ox 95 O2 Delivery Room Air Capillary Refill : Height, Weight, BMI Height: 5'10.00" Weight: 262lbs. 1.0oz. [id number]; 37.7 BMI Method:Stated General Appearance: No Apparent Distress, WD/WN HEENT: PERRL/EOMI, Pharynx Normal Neck: Full Range of Motion, Non Tender, Supple Respiratory: Chest Non Tender, Lungs Clear, Normal Breath Sounds, No Accessory Muscle Use, No Respiratory Distress Cardiovascular: Regular Rate, Rhythm, No Edema, No JVD Gastrointestinal: Normal Bowel Sounds, No Pulsatile Mass, Non Tender, Soft Extremity: Normal Capillary Refill, Non Tender, No Calf Tenderness Neurologic/Psychiatric: Alert, Oriented x3, No Motor/Sensory Deficits, Normal Mood/Affect Skin: Normal Color, Warm/Dry Progress/Results/Core Measures Results/Orders Lab Results Laboratory Tests Test 03/31/19 11:50 Range/Units White Blood Count 8.6 4.3-11.0 10^3/uL Red Blood Count 5.00 4.35-5.85 10^6/uL Hemoglobin 16.5 13.3-17.7 G/DL Hematocrit 46 40-54 % Mean Corpuscular Volume 91 80-99 FL Mean Corpuscular Hemoglobin 33 25-34 PG Mean Corpuscular Hemoglobin Concent 36 32-36 G/DL Red Cell Distribution Width 12.0 10.0-14.5 % Platelet Count 240 130-400 10^3/uL Mean Platelet Volume 10.1 7.4-10.4 FL Neutrophils (%) (Auto) 66 42-75 % Lymphocytes (%) (Auto) 20 12-44 % Monocytes (%) (Auto) 8 0-12 % Eosinophils (%) (Auto) 4 0-10 % Basophils (%) (Auto) 1 0-10 % Neutrophils # (Auto) 5.7 1.8-7.8 X 10^3 Lymphocytes # (Auto) 1.7 1.0-4.0 X 10^3 Monocytes # (Auto) 0.7 0.0-1.0 X 10^3 Eosinophils # (Auto) 0.4 H 0.0-0.3 10^3/uL Basophils # (Auto) 0.1 0.0-0.1 10^3/uL Prothrombin Time 12.3 12.2-14.7 SEC INR Comment 0.9 0.8-1.4 Activated Partial Thromboplast Time 26 24-35 SEC Sodium Level 136 135-145 MMOL/L Potassium Level 4.3 3.6-5.0 MMOL/L Chloride Level 96 L 98-107 MMOL/L Carbon Dioxide Level 23 21-32 MMOL/L Anion Gap 17 H 5-14 MMOL/L Blood Urea Nitrogen 20 H 7-18 MG/DL Creatinine 0.88 0.60-1.30 MG/DL Estimat Glomerular Filtration Rate > 60 BUN/Creatinine Ratio 23 Glucose Level 455 *H 70-105 MG/DL Calcium Level 9.0 8.5-10.1 MG/DL Corrected Calcium 8.8 8.5-10.1 MG/DL Magnesium Level 2.0 1.6-2.4 MG/DL Total Bilirubin 0.7 0.1-1.0 MG/DL Aspartate Amino Transf (AST/SGOT) 28 5-34 U/L Alanine Aminotransferase (ALT/SGPT) 37 0-55 U/L Alkaline Phosphatase 81 40-136 U/L Troponin I < 0.30 <0.30 NG/ML Pro-B-Type Natriuretic Peptide < 5.0 <75.0 PG/ML Total Protein 7.6 6.4-8.2 GM/DL Albumin 4.2 3.2-4.5 GM/DL Lipase 59 8-78 U/L My Orders Orders - SAMANTHA GRANDE DO Cbc With Automated Diff (03/31/19 11:42) Magnesium (03/31/19 11:42) Chest 1 View Ap/Pa Only (03/31/19 11:42) Ekg Tracing (03/31/19 11:42) Comprehensive Metabolic Panel (03/31/19 11:42) Protime With Inr (03/31/19 11:42) Partial Thromboplastin Time (03/31/19 11:42) O2 (03/31/19 11:42) Monitor-Rhythm Ecg Trace Only (03/31/19 11:42) Ed Iv/Invasive Line Start (03/31/19 11:42) Lipase (03/31/19 11:42) Troponin I Fs (03/31/19 11:42) Probnp Fs (03/31/19 11:42) Vital Signs/I&O 03/31/19 11:42 Temp 36.6 Pulse 89 Resp 20 B/P (MAP) 122/70 (87) Pulse Ox 95 O2 Delivery Room Air Progress Progress Note : Progress Note @1405 - patient updated on lab and imaging results. He agrees with the plan to be admitted. [facility] patient-doctor Dr. Allison excepts the telemetry observation admission at [facility]. EKG : Comment EKG@1142 - normal sinus rhythm, rate of 88, no acute ischemic findings noted, no STEMI reviewed and interpreted by myself Departure Communication (Admissions) Time/Spoke to Admitting Phy: 13:50 Dr. Allison accepts the observation admission at [facility] Impression Primary Impression: Chest pain Disposition: ADMITTED INPATIENT Condition: Stable Admissions Decision to Admit Reason: Admit from ER (General) Decision to Admit/Date: Mar 31, 2019 Time/Decision to Admit Time: 13:50 Departure-Patient Inst. Referrals: SUMI CAREY MD (PCP/Family) Primary Care Physician SAMANTHA GRANDE DO Mar 31, 2019 12:02 POS
[2019-03-31 12:06] LABS: HEMATOCRIT 46 % (40-54); HEMOGLOBIN 16.5 G/DL (13.3-17.7); MEAN CORPUSCULAR HEMOGLOBIN 33 PG (25-34); MEAN CORPUSCULAR HGB CONC 36 G/DL (32-36); MEAN CORPUSCULAR VOLUME 91 FL (80-99); PLATELET COUNT 240 10^3/uL (130-400); WHITE BLOOD COUNT 8.6 10^3/uL (4.3-11.0)
[2019-03-31 12:07] LABS: BASOPHILS # (AUTO) 0.1 10^3/uL (0.0-0.1); BASOPHILS % (AUTO) 1 % (0-10); EOSINOPHILS # (AUTO) 0.4 10^3/uL (0.0-0.3); EOSINOPHILS % (AUTO) 4 % (0-10); LYMPHOCYTES # (AUTO) 1.7 X 10^3 (1.0-4.0); LYMPHOCYTES % (AUTO) 20 % (12-44); MEAN PLATELET VOLUME 10.1 FL (7.4-10.4); MONOCYTES # (AUTO) 0.7 X 10^3 (0.0-1.0); MONOCYTES % (AUTO) 8 % (0-12); NEUTROPHILS # (AUTO) 5.7 X 10^3 (1.8-7.8); NEUTROPHILS % (AUTO) 66 % (42-75)
[2019-03-31 12:12] LABS: INR 0.9 (0.8-1.4); PROTHROMBIN TIME PATIENT 12.3 SEC (12.2-14.7)
--- NOTE | 2019-03-31 12:12 | Diagnostic Imaging Report ---
INDICATION: Chest pain. COMPARISON: January 29, 2017. TECHNIQUE: Single frontal radiograph of the chest dated March 31, 2019. FINDINGS: The cardiac silhouette is within normal limits in size. No significant pulmonary vascular congestion. The lungs are clear. No pleural effusion. No pneumothorax. No acute osseous abnormality. IMPRESSION: No acute cardiopulmonary abnormality. Dictated by: Dictated on workstation # [id number]
[2019-03-31 12:32] LABS: BUN/CREATININE RATIO 23; CARBON DIOXIDE 23 MMOL/L (21-32); CHLORIDE 96 MMOL/L (98-107); CREATININE SERUM 0.88 MG/DL (0.60-1.30); GFR ESTIMATED > 60; POTASSIUM 4.3 MMOL/L (3.6-5.0); SODIUM 136 MMOL/L (135-145)
[2019-03-31 12:34] LABS: ALANINE AMINOTRANSFERASE 37 U/L (0-55); ALBUMIN 4.2 GM/DL (3.2-4.5); ALKALINE PHOSPHATASE 81 U/L (40-136); BILIRUBIN,TOTAL 0.7 MG/DL (0.1-1.0); GLUCOSE 455 MG/DL (70-105); LIPASE 59 U/L (8-78); TOTAL PROTEIN 7.6 GM/DL (6.4-8.2)
[2019-03-31 15:30] VITALS: BP 134/75
[2019-03-31 15:33] VITALS: BP 134/75
[2019-03-31] MEDS ORDERED: CATHETER FLUSH 10 ML SYR IV PRN (15:45)
[2019-03-31] MEDS ORDERED: NITROGLYCERIN 0.4 MG SL TABS BTL 25'S SL PRN (15:45)
--- NOTE | 2019-03-31 15:46 | Consultation-Cardiology ---
HPI-Cardiology Cardiology Consultation: Date of Consultation 03/31/19 Time Seen by a Provider: 15:40 Date of Admission 03-31-19 Attending Physician Kirstie Macdonald DO Admitting Physician Josue Brown MD Consulting Physician LILIANA SELLERS HPI: Chief Complaint: Chest pain Mr. Gomez is a 54 year old male admitted from [facility]. He reports starting on Sunday he began to have chest pain at the nipple line that radiated across his chest. Worse with movement and palpation. Mild in intensity. Describes it as a feeling of "bruising". It has been present for approx 4 days. No c/o dyspnea or diaphoresis. He reports progressively decreased stamina over the course of the last 2 years. No c/o LE swelling. He denies any c/o palpations, syncope or near syncope. No c/o n/v/d. No c/o fever or chills. Review of Systems-Cardiology Review of Systems Constitutional: No chills, No fever; malaise Eyes: No vision change Ears/Nose/Throat: No epistaxis, No recent hearing loss Respiratory: As described under HPI Cardiovascular: As described under HPI Gastrointestinal: No constipation, No diarrhea, No nausea, No vomiting Genitourinary: No dysuria Skin: No rash on exposed areas, No ulcerations on exposed areas Psychiatric/Neurological: No anxiety, No depression, No seizure, No focal weakness, No syncope Hematologic: No bleeding abnormalities All Other Systems Reviewed Negative Unless Noted: Yes MEV-Zcrjft-Zkxjlb Hx Patient Social History Type Used: Cigarettes, Smokeless Tobacco Recent Foreign Travel: Yes ([place], [place], [place] ) Recent Infectious Disease Expo: No Hospitalization with Isolation: Denies Past Medical History PMH As described under Assessment. Family Medical History Family Medical History: He reports his father had Factor V and Ewings sarcoma. He reports his mother has a-fib and a CVA in the past. No report h/o CAD or SCD. Family History: COLITIS G8 BROTHER DRUG ABUSE Drug abuse G8 BROTHER Hypertension 19 MOTHER LUNG CANCER 19 FATHER Allergies and Home Medications Allergies Coded Allergies: No Known Drug Allergies (Unverified , 04/03/15) Home Medications Alprazolam 0.5 Mg Tablet, 0.5 MG PO BID PRN for ANXIETY, (Reported) Aspirin 81 Mg Tablet.dr, 81 MG PO DAILY, (Reported) Atorvastatin Calcium 10 Mg Tablet, 10 MG PO DAILY, (Reported) Cetirizine HCl/Pseudoephedrine 1 Each Tab.er.12h, 1 TAB PO Q12H PRN for ALLER GIES, (Reported) Glimepiride 4 Mg Tablet, 4 MG PO BID, (Reported) Liraglutide 0.6 Mg/0.1 Ml Pen.injctr, 1.8 MG SC HS, (Reported) Losartan/Hydrochlorothiazide 1 Each Tablet, 1 TAB PO DAILY, (Reported) Multivitamin 1 Each Tablet, 1 TAB PO Q48H, (Reported) ALTERNATES DAYS WITH FISH OIL [place] 3 Polyunsat Fatty Acids 1,000 Mg Cap, 1,000 MG PO Q48H, (Reported) ALTERNATES WITH MULTIVITAMIN Omeprazole 20 Mg Capsule.dr, 20 MG PO DAILY, (Reported) Physical Exam-Cardiology Physical Exam Vital Signs/I&O 03/31/19 04/01/19 04/01/19 04/01/19 20:00 00:05 01:00 04:00 Temp 36.8 36.9 Pulse 94 79 79 Resp 18 18 B/P (MAP) 145/83 (103) 146/92 (110) Pulse Ox 96 95 O2 Delivery Room Air Room Air Room Air 04/01/19 00:00 Intake Total 500 ml Balance 500 ml Capillary Refill : Less Than 3 Seconds Constitutional: AAO x 3, well-developed, well-nourished HEENT: PERRL, hearing is well preserved, oral hygience is good Neck: No carotid bruit; carotid pulses are 2 + bilaterally Respiratory: No accessory muscle use, No respiratory distress; chest expansion is symmetric, chest is bilaterally symmetric, lungs clear to auscultation Cardiovascular: regular rate-rhythm; No JVD Gastrointestinal: No tender; soft, round, audible bowel sounds Extremities: no lower extremity edema bilateral Neurologic/Psychiatric: grossly intact, power is 5/5 both on sides Skin: No rash on exposed areas, No ulcerations on exposed areas Data Review Labs Laboratory Tests 03/31/19 11:50: White Blood Count 8.6, Red Blood Count 5.00, Hemoglobin 16.5, Hematocrit 46, Mean Corpuscular Volume 91, Mean Corpuscular Hemoglobin 33, Mean Corpuscular Hemoglobin Concent 36, Red Cell Distribution Width 12.0, Platelet Count 240, Mean Platelet Volume 10.1, Neutrophils (%) (Auto) 66, Lymphocytes (%) (Auto) 20, Monocytes (%) (Auto) 8, Eosinophils (%) (Auto) 4, Basophils (%) (Auto) 1, Neutrophils # (Auto) 5.7, Lymphocytes # (Auto) 1.7, Monocytes # (Auto) 0.7, Eosinophils # (Auto) 0.4H, Basophils # (Auto) 0.1, Prothrombin Time 12.3, INR Comment 0.9, Activated Partial Thromboplast Time 26, Sodium Level 136, Potassium Level 4.3, Chloride Level 96L, Carbon Dioxide Level 23, Anion Gap 17H, Blood Urea Nitrogen 20H, Creatinine 0.88, Estimat Glomerular Filtration Rate > 60, BUN/Creatinine Ratio 23, Glucose Level 455*H, Calcium Level 9.0, Corrected Calcium 8.8, Magnesium Level 2.0, Total Bilirubin 0.7, Aspartate Amino Transf (AST/SGOT) 28, Alanine Aminotransferase (ALT/SGPT) 37, Alkaline Phosphatase 81, Troponin I < 0.30, Pro-B-Type Natriuretic Peptide < 5.0, Total Protein 7.6, Albumin 4.2, Lipase 59 03/31/19 15:55: Troponin I < 0.028 03/31/19 20:54: Glucometer 431*H 03/31/19 21:36: Troponin I < 0.028 04/01/19 05:30: White Blood Count 7.3, Red Blood Count 4.88, Hemoglobin 15.6, Hematocrit 45, Mean Corpuscular Volume 91, Mean Corpuscular Hemoglobin 32, Mean Corpuscular Hemoglobin Concent 35, Red Cell Distribution Width 12.9, Platelet Count 202, Mean Platelet Volume 10.3, Neutrophils (%) (Auto) 60, Lymphocytes (%) (Auto) 21, Monocytes (%) (Auto) 12, Eosinophils (%) (Auto) 6, Basophils (%) (Auto) 1, Neutrophils # (Auto) 4.4, Lymphocytes # (Auto) 1.5, Monocytes # (Auto) 0.9, Eosinophils # (Auto) 0.5H, Basophils # (Auto) 0.0, Sodium Level 137, Potassium Level 3.7, Chloride Level 101, Carbon Dioxide Level 23, Anion Gap 13, Blood Urea Nitrogen 20H, Creatinine 1.14, Estimat Glomerular Filtration Rate > 60, BUN/Creatinine Ratio 18, Glucose Level 301H, Calcium Level 9.1, Corrected Calcium 9.2, Total Bilirubin 0.9, Aspartate Amino Transf (AST/SGOT) 27, Alanine Aminotransferase (ALT/SGPT) 39, Alkaline Phosphatase 69, Total Protein 7.4, Albumin 3.9 04/01/19 06:12: Glucometer 309H Radiology NAME: JUMANA GOMEZ [facility] REC#: [id number] PT STATUS: REG ER : 1965 PHYSICIAN: SAMANTHA GRANDE DO ADMIT DATE: 03/31/19/ER FS Signed Date of Exam: 03/31/19 CHEST 1 VIEW AP/PA ONLY INDICATION: Chest pain. COMPARISON: January 29, 2017. TECHNIQUE: Single frontal radiograph of the chest dated March 31, 2019. FINDINGS: The cardiac silhouette is within normal limits in size. No significant pulmonary vascular congestion. The lungs are clear. No pleural effusion. No pneumothorax. No acute osseous abnormality. IMPRESSION: No acute cardiopulmonary abnormality. Dictated by: Dictated on workstation # [id number] Dict: 03/31/19 1208 Trans: 03/31/19 1309 Interpreted by: DAVID MALDONADO MD Electronically signed by: DAVDI MALDONADO MD 03/31/19 1309 ECG Impression ECG Initial ECG Rhythm: Normal Sinus A/P-Cardiology Assessment/Admission Diagnosis Chest pain of undetermined etiology HTN HLD - statin tx Reports h/o stress test at [facility] approx 5 years ago - reports it was normal Reports h/o cardiac CT at [facility] approx 4 years ago - reports it was OK Pipe tobacco use - cessation advised DM 2 H/O colon resection approx 3 years ago d/t diverticulitis Discussion and Recomendations Chest discomfort of undetermined etiology - no evidence of ACS thus far - serial cardiac analyzers - if remain normal then consider MPI Echocardiogram to eval structure Management of DM is with medical services Continue home anti-hypertensives and lipid tx Follow lab Further recs will be based on his hospital course We would like to thank medical services for this consult Clinical Quality Measures AMI/AHF: ASA po Prior to arrival: Yes LILIANA NGUYỄN Mar 31, 2019 15:46 POS
[2019-03-31] MEDS ORDERED: LIRA0.6P3 SC (16:33)
[2019-03-31] MEDS ORDERED: ALPR0.5T7 PO (16:33)
[2019-03-31] MEDS ORDERED: OMEP20CA13 PO (16:33)
[2019-03-31] MEDS ORDERED: MULT1TAB69 PO (16:36)
[2019-03-31] MEDS ORDERED: ASPI-983 PO (16:36)
[2019-03-31] MEDS ORDERED: OMG1KC PO (16:36)
[2019-03-31] MEDS ORDERED: REGADENOSON 0.4 MG/5 ML SYR (LEXISCAN) IV ONE (16:45)
--- NOTE | 2019-03-31 17:36 | Consultation-Cardiology ---
HPI-Cardiology Cardiology Consultation: Date of Consultation 03/31/19 Time Seen by a Provider: 17:30 Date of Admission Attending Physician Kirstie Macdonald DO Admitting Physician Josue Brown MD Consulting Physician PATTIE SÁNCHEZ MD, MA, FACP, FACC, FSCAI, CCDS HPI: Chief Complaint: CC: Chest pain HPI Mr. Mace is a 54 year old male admitted from [facility]. He reports starting on Sunday he began to have chest pain at the nipple line that radiated across his chest. Worse with movement and palpation. Mild in intensity. Describes it as a feeling of "bruising". It has been present for approx 4 days. No c/o dyspnea or diaphoresis. He reports progressively decreased stamina over the course of the last 2 years. No c/o LE swelling. He denies any c/o palpations, syncope or near syncope. No c/o n/v/d. No c/o fever or chills. Review of Systems-Cardiology Review of Systems Constitutional: No chills, No fever; malaise Eyes: No vision change Ears/Nose/Throat: No epistaxis, No recent hearing loss Respiratory: As described under HPI Cardiovascular: As described under HPI Gastrointestinal: No constipation, No diarrhea, No nausea, No vomiting Genitourinary: No dysuria Skin: No rash on exposed areas, No ulcerations on exposed areas Psychiatric/Neurological: No anxiety, No depression, No seizure, No focal weakness, No syncope Hematologic: No bleeding abnormalities All Other Systems Reviewed Negative Unless Noted: Yes SVS-Beibsz-Lsgpca Hx Patient Social History Type Used: Cigarettes, Smokeless Tobacco Recent Foreign Travel: Yes ([place], [place], [place] ) Recent Infectious Disease Expo: No Hospitalization with Isolation: Denies Immunizations Up To Date Date of Influenza Vaccine: Feb 25, 2019 Past Medical History PMH As described under Assessment. Family Medical History Family Medical History: He reports his father had Factor V and Ewings sarcoma. He reports his mother has a-fib and a CVA in the past. No report h/o CAD or SCD. Family History: COLITIS G8 BROTHER DRUG ABUSE Drug abuse G8 BROTHER Hypertension 19 MOTHER LUNG CANCER 19 FATHER Allergies and Home Medications Allergies Coded Allergies: No Known Drug Allergies (Unverified , 04/03/15) Home Medications Alprazolam 0.5 Mg Tablet, 0.5 MG PO BID PRN for ANXIETY, (Reported) Aspirin 81 Mg Tablet.dr, 81 MG PO DAILY, (Reported) Atorvastatin Calcium 10 Mg Tablet, 10 MG PO DAILY, (Reported) Cetirizine HCl/Pseudoephedrine 1 Each Tab.er.12h, 1 TAB PO Q12H PRN for ALLERGI ES, (Reported) Glimepiride 4 Mg Tablet, 4 MG PO BID, (Reported) Liraglutide 0.6 Mg/0.1 Ml Pen.injctr, 1.8 MG SC HS, (Reported) Losartan/Hydrochlorothiazide 1 Each Tablet, 1 TAB PO DAILY, (Reported) Multivitamin 1 Each Tablet, 1 TAB PO Q48H, (Reported) ALTERNATES DAYS WITH FISH OIL [place] 3 Polyunsat Fatty Acids 1,000 Mg Cap, 1,000 MG PO Q48H, (Reported) ALTERNATES WITH MULTIVITAMIN Omeprazole 20 Mg Capsule.dr, 20 MG PO DAILY, (Reported) Patient Home Medication List Home Medication List Reviewed: Yes Physical Exam-Cardiology Physical Exam Vital Signs/I&O 03/31/19 03/31/19 03/31/19 03/31/19 11:42 14:35 15:33 15:33 Temp 36.6 36.2 36.2 Pulse 89 85 98 98 Resp 20 19 20 20 B/P (MAP) 122/70 (87) 110/62 134/75 134/75 (94) Pulse Ox 95 96 93 93 O2 Delivery Room Air Room Air Room Air Room Air Capillary Refill : Less Than 3 Seconds Constitutional: AAO x 3, well-developed, well-nourished HEENT: PERRL, hearing is well preserved, oral hygience is good Neck: No carotid bruit; carotid pulses are 2 + bilaterally Respiratory: No accessory muscle use, No respiratory distress; chest expansion is symmetric, chest is bilaterally symmetric, lungs clear to auscultation Cardiovascular: regular rate-rhythm; No JVD Gastrointestinal: No tender; soft, round, audible bowel sounds Extremities: no lower extremity edema bilateral Neurologic/Psychiatric: grossly intact, power is 5/5 both on sides Skin: No rash on exposed areas, No ulcerations on exposed areas Data Review Labs Laboratory Tests 03/31/19 11:50: White Blood Count 8.6, Red Blood Count 5.00, Hemoglobin 16.5, Hematocrit 46, Mean Corpuscular Volume 91, Mean Corpuscular Hemoglobin 33, Mean Corpuscular Hemoglobin Concent 36, Red Cell Distribution Width 12.0, Platelet Count 240, Mean Platelet Volume 10.1, Neutrophils (%) (Auto) 66, Lymphocytes (%) (Auto) 20, Monocytes (%) (Auto) 8, Eosinophils (%) (Auto) 4, Basophils (%) (Auto) 1, Neutrophils # (Auto) 5.7, Lymphocytes # (Auto) 1.7, Monocytes # (Auto) 0.7, Eosinophils # (Auto) 0.4H, Basophils # (Auto) 0.1, Prothrombin Time 12.3, INR Comment 0.9, Activated Partial Thromboplast Time 26, Sodium Level 136, Potassium Level 4.3, Chloride Level 96L, Carbon Dioxide Level 23, Anion Gap 17H, Blood Urea Nitrogen 20H, Creatinine 0.88, Estimat Glomerular Filtration Rate > 60, BUN/Creatinine Ratio 23, Glucose Level 455*H, Calcium Level 9.0, Corrected Calcium 8.8, Magnesium Level 2.0, Total Bilirubin 0.7, Aspartate Amino Transf (AST/SGOT) 28, Alanine Aminotransferase (ALT/SGPT) 37, Alkaline Phosphatase 81, Troponin I < 0.30, Pro-B-Type Natriuretic Peptide < 5.0, Total Protein 7.6, Albumin 4.2, Lipase 59 03/31/19 15:55: Troponin I < 0.028 A/P-Cardiology Assessment/Admission Diagnosis Chest pain of undetermined etiology (costochondritis suspected) HTN HLD - statin tx Reports h/o stress test at [facility] approx 5 years ago - reports it was normal Reports h/o cardiac CT at [facility] approx 4 years ago - reports it was OK Pipe tobacco use - cessation advised DM 2 H/O colon resection approx 3 years ago d/t diverticulitis Discussion and Recomendations Symptoms suggestive of costochondritis, but we do recommend a cardiac w/u, given his multiple cor risk factors Chest discomfort of undetermined etiology - no evidence of ACS thus far - serial cardiac analyzers - if remain normal then consider MPI Echocardiogram to eval structure Management of DM is with Medical Services Treat with NSAID Continue home anti-hypertensives and lipid tx Follow lab Further recs will be based on his hospital course We would like to thank Medical Services for this consult Clinical Quality Measures AMI/AHF: ASA po Prior to arrival: Yes DVT/VTE Risk/Contraindication: Risk Factor Score Per Nursin RFS Level Per Nursing on Admit: 2=Moderate PATTIE SÁNCHEZ MD FACP FAC CCDS Mar 31, 2019 17:36 POS
[2019-03-31 19:29] VITALS: BP 149/78
--- NOTE | 2019-03-31 19:32 | NUR ---
JUMANA GOMEZ JR. admitted to room 419-1, with an admitting diagnosis of CHEST PAIN, on 03/31/19 from [facility] via [facility], accompanied by NO ONE. JUMANA GOMEZ JR introduced to surroundings, call light, bed controls, phone, TV, temperature control, lights, meal times, smoking policy, visitor policy, side rail policy, bathrooms and showers. Patient Rights given to patient in the handbook. JUMANA GOMEZ JR verbalizes understanding that [facility] is not responsible for the loss or damage to any personal effects or valuables that are kept in the patients possession during their hospitalization.
[2019-03-31] MEDS: IBUPROFEN 600 MG (MOTRIN) TAB PO SCH (19:48)
[2019-03-31] MEDS ORDERED: ACETAMINOPHEN 500 MG TAB (TYLENOL) PO PRN (20:15)
[2019-03-31] MEDS ORDERED: ALPRAZolam 0.25 MG (XANAX) TAB PO PRN (20:15)
[2019-03-31] MEDS ORDERED: fentaNYL INJECTION 100 MCG/2 ML AMP IVP PRN (20:15)
[2019-03-31] MEDS ORDERED: MELATONIN 3 MG TABLET PO PRN (20:15)
[2019-03-31] MEDS ORDERED: CALCIUM CARBONATE 500 MG (TUMS) TAB.CHEW PO PRN (20:15)
[2019-03-31] MEDS ORDERED: LOPERAMIDE 2 MG (IMODIUM) TABLET PO PRN (20:15)
[2019-03-31] MEDS ORDERED: diphenhydrAMINE 25 MG TAB (BENADRYL) PO PRN (20:15)
[2019-03-31] MEDS ORDERED: ONDANSETRON 4 MG/2 ML (SDV) Z0FRAN IVP PRN (20:15)
[2019-03-31] MEDS ORDERED: HYDROcodone/APAP 5 MG/325 MG (LORTAB) TAB PO PRN (20:15)
[2019-03-31] MEDS ORDERED: DOCUSATE SODIUM 100 MG (COLACE) CAP PO PRN (20:15)
[2019-03-31] MEDS: SENNA W/DOCUSATE (SENOKOT S) TABLET PO SCH (20:31)
[2019-03-31] MEDS: FAMOTIDINE 20 MG (PEPCID) TABLET PO SCH (20:31)
[2019-03-31] MEDS: ENOXAPARIN 40 MG/0.4 ML (LOVENOX) SYR SC SCH (20:31)
[2019-03-31] MEDS: CATHETER FLUSH 10 ML SYR IV SCH (20:32)
[2019-03-31] MEDS: inSUlin ASPART (NovoLOG) 1 UNIT/0.01 ML (CHARGE PER UNIT) SC SCH (21:40)
[2019-04-01] VITALS (7 sets, daily range): BP systolic 108–146; BP diastolic 68–92
[2019-04-01] MEDS: IBUPROFEN 600 MG (MOTRIN) TAB PO SCH ×4 (00:02→17:49)
[2019-04-01 06:18] LABS: BASOPHILS % (AUTO) 1 % (0-10); EOSINOPHILS # (AUTO) 0.5 10^3/uL (0.0-0.3); EOSINOPHILS % (AUTO) 6 % (0-10); HEMATOCRIT 45 % (40-54); HEMOGLOBIN 15.6 G/DL (13.3-17.7); LYMPHOCYTES # (AUTO) 1.5 X 10^3 (1.0-4.0); LYMPHOCYTES % (AUTO) 21 % (12-44); MEAN CORPUSCULAR HEMOGLOBIN 32 PG (25-34); MEAN CORPUSCULAR HGB CONC 35 G/DL (32-36); MEAN CORPUSCULAR VOLUME 91 FL (80-99); MEAN PLATELET VOLUME 10.3 FL (7.4-10.4); MONOCYTES # (AUTO) 0.9 X 10^3 (0.0-1.0); MONOCYTES % (AUTO) 12 % (0-12); NEUTROPHILS # (AUTO) 4.4 X 10^3 (1.8-7.8); NEUTROPHILS % (AUTO) 60 % (42-75); PLATELET COUNT 202 10^3/uL (130-400); RED CELL DISTRIBUTION WIDTH 12.9 % (10.0-14.5); WHITE BLOOD COUNT 7.3 10^3/uL (4.3-11.0)
[2019-04-01 06:40] LABS: ALANINE AMINOTRANSFERASE 39 U/L (0-55); ALBUMIN 3.9 GM/DL (3.2-4.5); ALKALINE PHOSPHATASE 69 U/L (40-136); BILIRUBIN,TOTAL 0.9 MG/DL (0.1-1.0); BUN/CREATININE RATIO 18; CALCIUM 9.1 MG/DL (8.5-10.1); CARBON DIOXIDE 23 MMOL/L (21-32); CHLORIDE 101 MMOL/L (98-107); CREATININE SERUM 1.14 MG/DL (0.60-1.30); GFR ESTIMATED > 60; GLUCOSE 301 MG/DL (70-105); POTASSIUM 3.7 MMOL/L (3.6-5.0); SODIUM 137 MMOL/L (135-145); TOTAL PROTEIN 7.4 GM/DL (6.4-8.2)
[2019-04-01] MEDS: inSUlin ASPART (NovoLOG) 1 UNIT/0.01 ML (CHARGE PER UNIT) SC SCH ×4 (06:42→21:19)
[2019-04-01] MEDS: CATHETER FLUSH 10 ML SYR IV SCH ×3 (06:42→22:32)
[2019-04-01] MEDS ORDERED: ALPRAZolam 0.5 MG (XANAX) TAB PO PRN (07:45)
[2019-04-01] MEDS: LOSARTAN 100 MG (COZAAR) TABLET PO SCH (09:01)
[2019-04-01] MEDS: HYDROCHLOROTHIAZIDE 25 MG (HCTZ) TAB PO SCH (09:02)
[2019-04-01] MEDS: ASPIRIN E.C. 81 MG (ECOTRIN) TAB PO SCH (09:02)
[2019-04-01] MEDS: FAMOTIDINE 20 MG (PEPCID) TABLET PO SCH ×2 (09:02→21:18)
[2019-04-01] MEDS: PANTOPRAZOLE 20 MG TABLET (PROTONIX) PO SCH (09:02)
[2019-04-01] MEDS: SENNA W/DOCUSATE (SENOKOT S) TABLET PO SCH ×2 (09:03→21:18)
--- NOTE | 2019-04-01 09:17 | Short Stay Summary-Hospitalist ---
History of Present Illness HPI/Chief Complaint Chief complaint: Chest pain. HPI: This is a 54yoWM Pt of Dr. Brown who has a PMH of HTN and a nervous stomach who presented to the [facility] with chest pain, cardiology evaluated him to be in need of a stress test today at 11 o'clock but he does have belching problems that smell like rotten eggs so I will consult Dr. Hodgson to evaluate for EGD as cause of the chest pain if the stress test in negative and will have close follow-up with Dr. Brown regarding this. Source: patient Exam Limitations: no limitations Date Seen 04/01/19 Time Seen by a Provider: 08:00 Attending Physician Kirstie Allison DO PCP Josue Brown MD Referring Physician Date of Admission Mar 31, 2019 at 14:25 Home Medications & Allergies Home Medications Reviewed patient Home Medication Reconciliation performed by pharmacy medication reconciliations model technician and/or nursing. Patients Allergies have been reviewed. 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) Smoking Status: Never a Smoker Former Smoker, Quit: Jan 29, 1991 Type Used: Cigarettes, Smokeless Tobacco Recent Foreign Travel: Yes ([place], [place], [place] ) Contact w/other who traveled: Yes Recent Hopitalizations: No Recent Infectious Disease Expo: No Immunizations Up To Date Date of Influenza Vaccine: Feb 25, 2019 Seasonal Allergies Seasonal Allergies: Yes Past Medical History Cardiac: High Cholesterol, Hypertension Reproductive: No Gastrointestinal: Colitis, Chronic Diarrhea Endocrine: Diabetes, Non-Insulin dep History of Blood Disorders: No Family History COLITIS G8 BROTHER DRUG ABUSE Drug abuse G8 BROTHER Hypertension 19 MOTHER LUNG CANCER 19 FATHER Cancer, GI Disease, Hypertension Review of Systems Constitutional: see HPI Cardiovascular: chest pain Gastrointestinal: abdominal pain (LLQ), loss of appetite, nausea, vomiting All Other Systems Reviewed Negative Unless Noted: Yes Physical Exam Physical Exam Vital Signs Vital Signs - First Documented 03/31/19 11:42 Temp 36.6 Pulse 89 Resp 20 B/P (MAP) 122/70 (87) Pulse Ox 95 O2 Delivery Room Air Capillary Refill : Less Than 3 Seconds Height, Weight, BMI Height: 5'10.00" Weight: 262lbs. 1.0oz. 118.730352gg; 230.20 BMI Method:Stated General Appearance: No Apparent Distress, WD/WN HEENT: PERRL/EOMI, Pharynx Normal Neck: Full Range of Motion, Non Tender, Supple Respiratory: Chest Non Tender, Lungs Clear, Normal Breath Sounds, No Accessory Muscle Use, No Respiratory Distress Cardiovascular: Regular Rate, Rhythm, No Edema, No JVD Gastrointestinal: Normal Bowel Sounds, No Pulsatile Mass, Non Tender, Soft Extremity: Normal Capillary Refill, Non Tender, No Calf Tenderness Neurologic/Psychiatric: Alert, Oriented x3, No Motor/Sensory Deficits, Normal Mood/Affect Skin: Normal Color, Warm/Dry Results Results/Procedures Labs Laboratory Tests 03/31/19 11:50 04/01/19 05:30 Patient resulted labs reviewed. Short Stay Diagnosis Discharge Diagnosis-Short Stay Admission Diagnosis Chest pain Abdominal pain Anxiety HTN DM HLP Obesity MENG Final Discharge Diagnosis Chest pain Abdominal pain Anxiety HTN DM HLP Obesity MENG Conclusion Plan Monitor pain EGD EST Diagnosis/Problems Diagnosis/Problems (1) Chest pain Status: Acute Clinical Quality Measures AMI/AHF: ASA po Prior to arrival: Yes DVT/VTE Risk/Contraindication: Risk Factor Score Per Nursin RFS Level Per Nursing on Admit: 2=Moderate KIRSTIE ALLISON DO Apr 01, 2019 09:17 POS
[2019-04-01] MEDS ORDERED: REGADENOSON 0.4 MG/5 ML SYR (LEXISCAN) IV ONE (12:41)
--- NOTE | 2019-04-01 13:22 | Progress Note - Cardiology ---
Cardiology SOAP Progress Note Subjective: No further c/o CP, palpitations, syncope, dyspnea or near syncope. Objective: I&O/Vital Signs 04/01/19 04/01/19 04/01/19 04/01/19 07:00 08:00 08:45 12:00 Temp 36.6 Pulse 83 86 Resp 20 B/P (MAP) 108/68 (81) Pulse Ox 94 O2 Delivery Room Air Room Air Room Air 04/01/19 04/01/19 04/01/19 04/01/19 12:57 13:00 14:05 15:52 Temp 36.6 Pulse 110 90 77 82 Resp 16 20 18 B/P (MAP) 132/87 (102) 124/80 (95) 135/87 (103) Pulse Ox 97 97 96 O2 Delivery Room Air Room Air Room Air 04/01/19 00:00 Intake Total 500 ml Balance 500 ml Weight (Pounds): 262 Weight (Ounces): 1.0 Weight (Calculated Kilograms): 118.831619 Constitutional: AAO x 3, well-developed, well-nourished Respiratory: No accessory muscle use, No respiratory distress; chest expansion is symmetric, chest is bilaterally symmetric, lungs clear to auscultation Cardiovascular: regular rate-rhythm; No JVD Gastrointestional: No tender; soft, round, audible bowel sounds Extremities: no lower extremity edema bilateral Neurologic/Psychiatric: grossly intact, power is 5/5 both on sides Skin: No rash on exposed areas, No ulcerations on exposed areas Results/Procedures: Labs Laboratory Tests 03/31/19 20:54: Glucometer 431*H 03/31/19 21:36: Troponin I < 0.028 04/01/19 05:30: White Blood Count 7.3, Red Blood Count 4.88, Hemoglobin 15.6, Hematocrit 45, Mean Corpuscular Volume 91, Mean Corpuscular Hemoglobin 32, Mean Corpuscular Hemoglobin Concent 35, Red Cell Distribution Width 12.9, Platelet Count 202, M Platelet Volume 10.3, Neutrophils (%) (Auto) 60, Lymphocytes (%) (Auto) 21, Monocytes (%) (Auto) 12, Eosinophils (%) (Auto) 6, Basophils (%) (Auto) 1, Neutrophils # (Auto) 4.4, Lymphocytes # (Auto) 1.5, Monocytes # (Auto) 0.9, Eosinophils # (Auto) 0.5H, Basophils # (Auto) 0.0, Sodium Level 137, Potassium Level 3.7, Chloride Level 101, Carbon Dioxide Level 23, Anion Gap 13, Blood Urea Nitrogen 20H, Creatinine 1.14, Estimat Glomerular Filtration Rate > 60, BUN/Creatinine Ratio 18, Glucose Level 301H, Calcium Level 9.1, Corrected Calcium 9.2, Total Bilirubin 0.9, Aspartate Amino Transf (AST/SGOT) 27, Alanine Aminotransferase (ALT/SGPT) 39, Alkaline Phosphatase 69, Total Protein 7.4, Albumin 3.9 04/01/19 06:12: Glucometer 309H 04/01/19 16:10: Glucometer 301H Laboratory Tests 03/31/19 11:50 04/01/19 05:30 A/P: Assessment: Chest pain of undetermined etiology (costochondritis suspected) HTN HLD - statin tx MPI on 04/01/19: no ischemia, no infarction, LVEF 75% Echo of 04/01/19: LVEF 60-65% Reports h/o stress test at [facility] approx 5 years ago - reports it was normal Reports h/o cardiac CT at [facility] approx 4 years ago - reports it was OK Pipe tobacco use - cessation advised DM 2 H/O colon resection approx 3 years ago d/t diverticulitis Plan: Symptoms suggestive of costochondritis, symptoms improved following NSAID tx Chest discomfort of undetermined etiology - no evidence of ACS - MPI pending Echocardiogram to eval structure -pending Management of DM is with Medical Services Physician Assessment Physician Assessment Chest pain much improved. Now reproducible after application of moderate pressure on the sternum. No cp or palp or syncope Lungs: clear Cor: reg Ext: no c/c/e A&R * As documented in out note above that I updated (italics) and as noted below * Ok for d/c from cardiac standpoint * I discussed with him in detail the results of his cardiac w/u * We recommend outpt cardiac f/u * We recommend return to ER if new symptoms or exacerbation of symptoms Clinical Quality Measures AMI/AHF: ASA po Prior to arrival: Yes LILIANA NGUYỄN LARD BLEACHER Apr 01, 2019 13:22 PATTIE MENDES MD FACP FAC CCDS Apr 01, 2019 17:55 POS
--- NOTE | 2019-04-01 14:32 | STRESS TEST ---
DATE OF SERVICE: 04/01/2019 RESTING AND POST REGADENOSON TECHNETIUM-99M TETROFOSMIN SPECT CT IMAGING ORDERING PHYSICIAN: Roxy Marques APRN PRIMARY PHYSICIAN: Dr. Brown. ATTENDING PHYSICIAN: Kirstie Macdonald DO CLINICAL DIAGNOSIS: Chest pain. Baseline images were carried out after injection of 10.5 mCi of technetium-99m Tetrofosmin. This was followed by 0.4 mg regadenoson and 30.8 mCi of technetium-99m Tetrofosmin for stress imaging. The electrocardiogram showed sinus rhythm at baseline. It did not change significantly with the regadenoson infusion. Review of images at rest and following stress does not indicate any significant perfusion defects consistent with myocardial ischemia or infarction. Gated images show normal global left ventricular systolic function with normal regional wall motion. Left ventricular ejection fraction is calculated to be 75%. Left ventricular end diastolic volume is 57 mL. TID is absent (1.07). CONCLUSIONS: 1. No evidence of any significant myocardial ischemia or infarction on this study. 2. Normal regional wall motion. 3. Normal global left ventricular systolic function with a calculated ejection fraction of 75%. Job ID: [id number] DocumentID: [id number] Dictated Date: 04/01/2019 14:22:12 [employer] Cutter Hand Date: 04/01/2019 14:31:07 Dictated By: PATTIE SÁNCHEZ MD, MA, FACP, FACC,
--- NOTE | 2019-04-01 15:44 | Consultation - Surgery ---
TELMA JANG,MED STUDENT 04/01/19 1544: History of Present Illness History of Present Illness Patient Consulted On(oscar/time) 04/01/19 15:35 Date Seen by Provider: Apr 01, 2019 Time Seen by Provider: 14:50 History of Present Illness Mr. Mace is a 54yo male who presented to the [facility] ED with chest pain that started Sunday. He denies ever having pain like this in the past, and states the pain is between the nipples, anterior to the sternum and is non- radiating. At the time he presented to the ED he states his pain was a 2/10, and is a 1/10 currently. He describes the pain as a bruise type pain, with one instance of a sharp pain while in the ED. Movement and activity worsen the pain, and resting the area relieves the pain. He also notes a new onset of burping for the last month that he describes smelling like rotten eggs. He notes this burping can happen anytime during the day and is not necessarily associated with meals. He denies dysphagia or hematemesis. Allergies and Home Medications Allergies Coded Allergies: No Known Drug Allergies (Unverified , 04/03/15) Home Medications Alprazolam 0.5 Mg Tablet, 0.5 MG PO BID PRN for ANXIETY, (Reported) Aspirin 81 Mg Tablet.dr, 81 MG PO DAILY, (Reported) Atorvastatin Calcium 10 Mg Tablet, 10 MG PO DAILY, (Reported) Cetirizine HCl/Pseudoephedrine 1 Each Tab.er.12h, 1 TAB PO Q12H PRN for ALLERGIES, (Reported) Glimepiride 4 Mg Tablet, 4 MG PO BID, (Reported) Liraglutide 0.6 Mg/0.1 Ml Pen.injctr, 1.8 MG SC HS, (Reported) Losartan/Hydrochlorothiazide 1 Each Tablet, 1 TAB PO DAILY, (Reported) Multivitamin 1 Each Tablet, 1 TAB PO Q48H, (Reported) ALTERNATES DAYS WITH FISH OIL [place] 3 Polyunsat Fatty Acids 1,000 Mg Cap, 1,000 MG PO Q48H, (Reported) ALTERNATES WITH MULTIVITAMIN Omeprazole 20 Mg Capsule.dr, 20 MG PO DAILY, (Reported) Past Qcydanx-Epadat-Rusdpg Hx Patient Social History Alcohol Use: Rarely Uses Recreational Drug Use: No Smoking Status: Current Someday Smoker (Has smoked pipe tobacco x3/day for last 3 months. Before this he smoked cigars.) Former Smoker, Quit: Jan 29, 1991 Type Used: Cigars, Pipe, Smokeless Tobacco Recent Foreign Travel: Yes ([place], [place], [place] ) Contact w/Someone Who Travel: Yes Recent Infectious Disease Expo: No Recent Hopitalizations: No Immunizations Up To Date Date of Influenza Vaccine: Feb 25, 2019 Seasonal Allergies Seasonal Allergies: Yes Surgeries History of Surgeries: Yes Surgeries: Bowel Surgery (Colon resection due to diverticulitis, removed 5-6 inches) Respiratory History of Respiratory Disorde: No Cardiovascular History of Cardiac Disorders: Yes (HIGH TRIGLYCERIDES) Cardiac Disorders: High Cholesterol, Hypertension Neurological History of Neurological Disord: No Reproductive System Hx Reproductive Disorders: No Genitourinary History of Genitourinary Disor: No Gastrointestinal History of Gastrointestinal Di: Yes Gastrointestinal Disorders: Colitis, Diverticulosis, Chronic Diarrhea Musculoskeletal History of Musculoskeletal Dis: No Endocrine History of Endocrine Disorders: Yes Endocrine Disorders: Diabetes, Non-Insulin dep HEENT History of HEENT Disorders: No Loss of Vision: Bilateral (Notes gradually worsening) Hearing Impairment: Denies Cancer History of Cancer: No Psychosocial History of Psychiatric Problem: No Integumentary History of Skin or Integumenta: No Blood Transfusions History of Blood Disorders: No Family Medical History Significant Family History: Cancer (Father, lung), CAD Over 55 Years Old (Grandfather), Diabetes (Mother), GI Disease, Hypertension, Stroke (Mother) Family Medial History: COLITIS G8 BROTHER DRUG ABUSE Drug abuse G8 BROTHER Hypertension 19 MOTHER LUNG CANCER 19 FATHER Review of Systems-General Constitutional: No chills, No fever, No weight gain; weight loss (5 pounds last 2 months) EENTM: No hearing loss, No double vision, No eye pain Respiratory: No cough, No hemoptysis, No short of breath Cardiovascular: No palpitations, No syncope Gastrointestinal: No abdominal pain; diarrhea (notes some soft stools recently); No dysphagia, No hematemesis; loss of appetite (reports getting full quicker recently); No nausea, No vomiting Genitourinary: No dysuria, No frequency, No hematuria, No incontinence, No pain Psychiatric/Neurological: Anxiety (Work related stress and anxiety); Denies Numbness, Denies Paresthesia Physical Exam-General Problems Physical Exam Vital Signs Vital Signs - First Documented 03/31/19 11:42 Temp 36.6 Pulse 89 Resp 20 B/P (MAP) 122/70 (87) Pulse Ox 95 O2 Delivery Room Air Capillary Refill : Less Than 3 Seconds General Appearance: WD/WN, no apparent distress Eyes: Bilateral Eye PERRL, Bilateral Eye EOMI HEENT: PERRL/EOMI, pharynx normal Neck: non-tender, supple; No lymphadenopathy (R), No lymphadenopathy (L) Respiratory: No chest non-tender; lungs clear, normal breath sounds, no respiratory distress, no accessory muscle use; No decreased breath sounds, No crackles, No rales, No rhonchi Cardiovascular: normal peripheral pulses, regular rate, rhythm, no edema, no murmur Peripheral Pulses: 2+ Dorsalis Pedis (R), 2+ Left Dors-Pedis (L), 2+ Radial Pulses (R), 2+ Radial Pulses (L) Gastrointestinal: normal bowel sounds, non tender, soft, no organomegaly, no pulsatile mass; No guarding, No rebound Extremities: no pedal edema, no calf tenderness, normal capillary refill; No inflammation Neurologic/Psychiatric: slicing machine feeder II-XII nml as tested, alert, normal mood/affect, oriented x 3 Skin: normal color, warm/dry Lymphatic: no adenopathy Data Review Labs Laboratory Tests 03/31/19 15:55: Troponin I < 0.028 03/31/19 20:54: Glucometer 431*H 03/31/19 21:36: Troponin I < 0.028 04/01/19 05:30: White Blood Count 7.3, Red Blood Count 4.88, Hemoglobin 15.6, Hematocrit 45, Mean Corpuscular Volume 91, Mean Corpuscular Hemoglobin 32, Mean Corpuscular Hemoglobin Concent 35, Red Cell Distribution Width 12.9, Platelet Count 202, Mean Platelet Volume 10.3, Neutrophils (%) (Auto) 60, Lymphocytes (%) (Auto) 21, Monocytes (%) (Auto) 12, Eosinophils (%) (Auto) 6, Basophils (%) (Auto) 1, Neutr ophils # (Auto) 4.4, Lymphocytes # (Auto) 1.5, Monocytes # (Auto) 0.9, Eosinophils # (Auto) 0.5H, Basophils # (Auto) 0.0, Sodium Level 137, Potassium Level 3.7, Chloride Level 101, Carbon Dioxide Level 23, Anion Gap 13, Blood Urea Nitrogen 20H, Creatinine 1.14, Estimat Glomerular Filtration Rate > 60, BUN/Creatinine Ratio 18, Glucose Level 301H, Calcium Level 9.1, Corrected Calcium 9.2, Total Bilirubin 0.9, Aspartate Amino Transf (AST/SGOT) 27, Alanine Aminotransferase (ALT/SGPT) 39, Alkaline Phosphatase 69, Total Protein 7.4, Albumin 3.9 04/01/19 06:12: Glucometer 309H Assessment/Plan Assessment/Plan Assessment/Plan Gastroparesis GERD Peptic Ulcer Disease Hiatal hernia H. pylori gastritis Esophagitis NPO after midnight Plan for EGD tomorrow Continue DM management Clinical Quality Measures AMI/AHF: ASA po Prior to arrival: Yes DVT/VTE Risk/Contraindication: Risk Factor Score Per Nursin RFS Level Per Nursing on Admit: 2=Moderate NOHEMI BEACH DO 04/01/192007: History of Present Illness History of Present Illness History of Present Illness Consult requested by Dr. Macdonald for EGD. Patient is a 54 year old male that states has been having chest discomfort since last Sunday. States that it is in middle of chest. No radiation. Rates pain about a 2/10. Feels like bruise with on occasion sharp pain. Report rotten egg smelling burps that has been going on for about 1 month. No difficulty swallowing. No abdominal pain. Feels like he may have an ulcer he states. Has been under quite a bit of stress. Denies n/v fever sweats chills shortness of breath at this time. Allergies and Home Medications Allergies Coded Allergies: No Known Drug Allergies (Unverified , 04/03/15) Home Medications Alprazolam 0.5 Mg Tablet, 0.5 MG PO BID PRN for ANXIETY, (Reported) Aspirin 81 Mg Tablet.dr, 81 MG PO DAILY, (Reported) Atorvastatin Calcium 10 Mg Tablet, 10 MG PO DAILY, (Reported) Cetirizine HCl/Pseudoephedrine 1 Each Tab.er.12h, 1 TAB PO Q12H PRN for AL LERGIES, (Reported) Glimepiride 4 Mg Tablet, 4 MG PO BID, (Reported) Liraglutide 0.6 Mg/0.1 Ml Pen.injctr, 1.8 MG SC HS, (Reported) Losartan/Hydrochlorothiazide 1 Each Tablet, 1 TAB PO DAILY, (Reported) Multivitamin 1 Each Tablet, 1 TAB PO Q48H, (Reported) ALTERNATES DAYS WITH FISH OIL [place] 3 Polyunsat Fatty Acids 1,000 Mg Cap, 1,000 MG PO Q48H, (Reported) ALTERNATES WITH MULTIVITAMIN Omeprazole 20 Mg Capsule.dr, 20 MG PO DAILY, (Reported) Patient Home Medication List Home Medication List Reviewed: Yes Past Oddgmlu-Yrpufo-Rlqugc Hx Patient Social History Alcohol Use: Rarely Uses Recreational Drug Use: No Smoking Status: Current Someday Smoker (Has smoked pipe tobacco x3/day for last 3 months. Before this he smoked cigars.) Type Used: Cigars, Pipe, Smokeless Tobacco Surgeries History of Surgeries: Yes Surgeries: Bowel Surgery (Colon resection due to diverticulitis, removed 5-6 inches) Cardiovascular Cardiac Disorders: High Cholesterol, Hypertension Gastrointestinal Gastrointestinal Disorders: Colitis, Diverticulosis, Chronic Diarrhea Endocrine Endocrine Disorders: Diabetes, Non-Insulin dep HEENT Hearing Impairment: Denies Family Medical History Significant Family History: Cancer (Father, lung), CAD Over 55 Years Old (Grandfather), Diabetes (Mother), GI Disease, Hypertension, Stroke (Mother) Family Medial History: COLITIS G8 BROTHER DRUG ABUSE Drug abuse G8 BROTHER Hypertension 19 MOTHER LUNG CANCER 19 FATHER Review of Systems-General Constitutional: no symptoms reported EENTM: no symptoms reported Respiratory: no symptoms reported Cardiovascular: see HPI Gastrointestinal: see HPI Genitourinary: no symptoms reported Musculoskeletal: no symptoms reported Skin: no symptoms reported Psychiatric/Neurological: Anxiety (Work related stress and anxiety) Physical Exam-General Problems Physical Exam General Appearance: WD/WN, no apparent distress HEENT: PERRL/EOMI Neck: non-tender, supple Respiratory: chest non-tender, no respiratory distress, no accessory muscle use Cardiovascular: normal peripheral pulses, regular rate, rhythm Gastrointestinal: normal bowel sounds, non tender, soft Rectal: deferred Back: no CVA tenderness Extremities: non-tender, no pedal edema, no calf tenderness Neurologic/Psychiatric: slicing machine feeder II-XII nml as tested, alert, normal mood/affect, oriented x 3 Skin: normal color, warm/dry Lymphatic: no adenopathy Assessment/Plan Assessment/Plan Assessment/Plan Gerd Chest discomfort Anxiety Possible gastritis/ulcers discussed risks and benefits of having egd performed he understands and wishes to proceed. patient already had po intake so will plan for tomorrow consent for EGD all other indicated procedures NPO after midnight. Supervisory-Addendum Brief Verification & Attestation Participated in pt care: history, MDM, physical Personally performed: exam, history, MDM, supervision of care Care discussed with: Medical Student Procedures: n/a Results interpretation: Verified all documentation Verification and Attestation of Medical Student E/M Service A medical student performed and documented this service in my presence. I reviewed and verified all information documented by the medical student and made modifications to such information, when appropriate. I personally performed the physical exam and medical decision making. [place], Apr 01, 2019,20:14 TELMA JANG,MED STUDENT Apr 01, 2019 15:44 NOHEMI VAZQUEZ DO Apr 01, 2019 20:08 POS
--- NOTE | 2019-04-01 19:39 | NUR ---
notified dr see that stress test and echo were both neg today pt has denies any pain and is up at tara without shortness of air. pt requesting to leave the tele off.. order obtained to hi tele
[2019-04-01] MEDS: ENOXAPARIN 40 MG/0.4 ML (LOVENOX) SYR SC SCH (21:18)
[2019-04-02] VITALS (8 sets, daily range): BP systolic 105–144; BP diastolic 66–84
[2019-04-02 05:28] LABS: BASOPHILS # (AUTO) 0.1 10^3/uL (0.0-0.1); BASOPHILS % (AUTO) 1 % (0-10); EOSINOPHILS # (AUTO) 0.5 10^3/uL (0.0-0.3); EOSINOPHILS % (AUTO) 7 % (0-10); HEMATOCRIT 42 % (40-54); HEMOGLOBIN 15.1 G/DL (13.3-17.7); LYMPHOCYTES # (AUTO) 1.8 X 10^3 (1.0-4.0); LYMPHOCYTES % (AUTO) 25 % (12-44); MEAN CORPUSCULAR HEMOGLOBIN 33 PG (25-34); MEAN CORPUSCULAR HGB CONC 36 G/DL (32-36); MEAN CORPUSCULAR VOLUME 92 FL (80-99); MEAN PLATELET VOLUME 10.3 FL (7.4-10.4); MONOCYTES # (AUTO) 0.8 X 10^3 (0.0-1.0); MONOCYTES % (AUTO) 10 % (0-12); NEUTROPHILS # (AUTO) 4.2 X 10^3 (1.8-7.8); NEUTROPHILS % (AUTO) 57 % (42-75); PLATELET COUNT 183 10^3/uL (130-400); RED CELL DISTRIBUTION WIDTH 12.4 % (10.0-14.5); WHITE BLOOD COUNT 7.3 10^3/uL (4.3-11.0)
[2019-04-02] MEDS: IBUPROFEN 600 MG (MOTRIN) TAB PO SCH ×3 (05:47→11:54)
[2019-04-02] MEDS: CATHETER FLUSH 10 ML SYR IV SCH (05:47)
[2019-04-02 05:51] LABS: ALANINE AMINOTRANSFERASE 35 U/L (0-55); ALBUMIN 3.6 GM/DL (3.2-4.5); ALKALINE PHOSPHATASE 57 U/L (40-136); BILIRUBIN,TOTAL 0.6 MG/DL (0.1-1.0); BUN/CREATININE RATIO 19; CALCIUM 8.8 MG/DL (8.5-10.1); CARBON DIOXIDE 21 MMOL/L (21-32); CHLORIDE 102 MMOL/L (98-107); CREATININE SERUM 1.04 MG/DL (0.60-1.30); GFR ESTIMATED > 60; GLUCOSE 277 MG/DL (70-105); POTASSIUM 3.7 MMOL/L (3.6-5.0); SODIUM 136 MMOL/L (135-145); TOTAL PROTEIN 6.8 GM/DL (6.4-8.2)
[2019-04-02 05:52] LABS: CHOLESTEROL 134 MG/DL (< 200); HDL CHOLESTEROL 17 MG/DL (40-60); TRIGLYCERIDES 703 MG/DL (<150); VLDL CHOLESTEROL 141 MG/DL (5-40)
[2019-04-02] MEDS: inSUlin ASPART (NovoLOG) 1 UNIT/0.01 ML (CHARGE PER UNIT) SC SCH ×2 (06:08→11:07)
--- NOTE | 2019-04-02 07:54 | Progress Note - Surgery ---
TELMA JANG,MED STUDENT 04/02/19 0754: Subjective Date Seen by a Provider: Apr 02, 2019 Time Seen by a Provider: 07:15 Subjective/Events-last exam Patient seen and examined. He reports no new concerns overnight and states he wishes to have the EGD performed soon. He has not had anything to eat or drink since approximately 22:00 last night per NPO order. He denies an episode of the chest discomfort since encounter yesterday, and denies any more belching. Has had a BM and is urinating okay. Objective Exam Vital Signs Date Time Temp Pulse Resp B/P (MAP) Pulse Ox O2 Delivery O2 Flow Rate FiO2 04/02/19 04:00 37.1 76 18 121/71 (88) 96 Room Air 04/02/19 00:57 36.9 51 18 105/66 (79) 96 Room Air 04/01/19 19:50 92 Room Air 04/01/19 19:29 37.0 110 20 127/75 (92) 92 Room Air 04/01/19 15:52 82 18 135/87 (103) 96 Room Air 04/01/19 14:05 36.6 77 20 124/80 (95) 97 Room Air 04/01/19 13:00 90 04/01/19 12:57 110 16 132/87 (102) 97 Room Air 04/01/19 12:00 Room Air 04/01/19 08:45 Room Air 04/01/19 08:00 36.6 86 20 108/68 (81) 94 Room Air I & O 04/02/19 07:00 Intake Total 1150 ml Balance 1150 ml Capillary Refill : Less Than 3 Seconds General Appearance: No Apparent Distress, WD/WN HEENT: PERRL/EOMI Neck: Full Range of Motion Respiratory: Chest Non Tender, Lungs Clear, Normal Breath Sounds, No Accessory Muscle Use, No Respiratory Distress Cardiovascular: Regular Rate, Rhythm, No Edema Peripheral Pulses: 2+ Dorsalis Pedis (R), 2+ Left Dors-Pedis (L), 2+ Radial Pulses (R), 2+ Radial Pulses (L) Gastrointestinal: normal bowel sounds, non tender, soft Extremity: Normal Capillary Refill, Non Tender, No Calf Tenderness Neurologic/Psychiatric: Alert, Oriented x3, Normal Mood/Affect Skin: Normal Color, Warm/Dry Results Lab Laboratory Tests 04/01/19 16:10: Glucometer 301H 04/01/19 21:00: Glucometer 429*H 04/02/19 05:15: White Blood Count 7.3, Red Blood Count 4.57, Hemoglobin 15.1, Hematocrit 42, Mean Corpuscular Volume 92, Mean Corpuscular Hemoglobin 33, Mean Corpuscular Hemoglobin Concent 36, Red Cell Distribution Width 12.4, Platelet Count 183, Mean Platelet Volume 10.3, Neutrophils (%) (Auto) 57, Lymphocytes (%) (Auto) 25, Monocytes (%) (Auto) 10, Eosinophils (%) (Auto) 7, Basophils (%) (Auto) 1, Neutrophils # (Auto) 4.2, Lymphocytes # (Auto) 1.8, Monocytes # (Auto) 0.8, Eosinophils # (Auto) 0.5H, Basophils # (Auto) 0.1, Sodium Level 136, Potassium Level 3.7, Chloride Level 102, Carbon Dioxide Level 21, Anion Gap 13, Blood Urea Nitrogen 20H, Creatinine 1.04, Estimat Glomerular Filtration Rate > 60, BUN/Creatinine Ratio 19, Glucose Level 277H, Calcium Level 8.8, Corrected Calcium 9.1, Total Bilirubin 0.6, Aspartate Amino Transf (AST/SGOT) 22, Alanine Aminotransferase (ALT/SGPT) 35, Alkaline Phosphatase 57, Total Protein 6.8, Albumin 3.6, Triglycerides Level 703H, Cholesterol Level 134, LDL Cholesterol Direct 32, VLDL Cholesterol 141H, HDL Cholesterol 17L Assessment/Plan Assessment/Plan Assessment/Plan Gerd Chest discomfort Anxiety Possible gastritis/ulcers discussed risks and benefits of having egd performed he understands and wishes to proceed. patient has been NPO since midnight in preparation for EGD plan to perform EGD this a.m. Clinical Quality Measures AMI/AHF: ASA po Prior to arrival: Yes DVT/VTE Risk/Contraindication: Risk Factor Score Per Nursin RFS Level Per Nursing on Admit: 2=Moderate NOHEMI HODGSON DO 04/08/192135: Subjective Subjective/Events-last exam No new concerns. For EGD today. NPO. Objective Exam General Appearance: No Apparent Distress, WD/WN HEENT: PERRL/EOMI Neck: Full Range of Motion Respiratory: Chest Non Tender, No Accessory Muscle Use, No Respiratory Distress Cardiovascular: Regular Rate, Rhythm Gastrointestinal: normal bowel sounds, non tender, soft Extremity: Normal Capillary Refill, Non Tender, No Calf Tenderness Neurologic/Psychiatric: Alert, Oriented x3, Normal Mood/Affect Skin: Normal Color, Warm/Dry Lymphatic: No Adenopathy Assessment/Plan Assessment/Plan Assessment/Plan Gerd Chest discomfort Anxiety Possible gastritis/ulcers understands risks and benefits. plan egd today Supervisory-Addendum Brief Verification & Attestation Participated in pt care: history, MDM, physical Personally performed: exam, history, MDM, supervision of care Care discussed with: Medical Student Procedures: n/a Results interpretation: Verified all documentation Verification and Attestation of Medical Student E/M Service A medical student performed and documented this service in my presence. I reviewed and verified all information documented by the medical student and made modifications to such information, when appropriate. I personally performed the physical exam and medical decision making. Nohemi Hodgson, Apr 02, 2019, 07:35 TELMA JANG,MED STUDENT Apr 02, 2019 07:54 NOHEMI VAZQUEZ DO Apr 08, 2019 21:36 POS
[2019-04-02] MEDS: LOSARTAN 100 MG (COZAAR) TABLET PO SCH (09:55)
[2019-04-02] MEDS: HYDROCHLOROTHIAZIDE 25 MG (HCTZ) TAB PO SCH (09:56)
[2019-04-02] MEDS: ASPIRIN E.C. 81 MG (ECOTRIN) TAB PO SCH (09:56)
[2019-04-02] MEDS: SENNA W/DOCUSATE (SENOKOT S) TABLET PO SCH (09:56)
[2019-04-02] MEDS: PANTOPRAZOLE 20 MG TABLET (PROTONIX) PO SCH (09:56)
[2019-04-02] MEDS: FAMOTIDINE 20 MG (PEPCID) TABLET PO SCH (09:57)
--- NOTE | 2019-04-02 11:25 | Discharge Summary ---
Discharge Summary Hospital Course Was the Problem List Reviewed?: Yes Problems/Dx: (1) Chest pain Status: Acute Hospital Course Date of Admission: Mar 31, 2019 at 14:25 Admission Diagnosis : Family Physician/Provider: Josue Brown MD Date of Discharge: 04/02/19 Discharge Diagnosis: Chest pain, GERD, DM, HTN Hospital Course: HospitalCourse: Pt had a standard hospital course he was admitted placed on Telemetry placed on monitored serial troponins, and cardiology was consulted. He underwent stress test which revealed no evidence of any reversible ischemia. EGD performed due to belching and mid upper gastric pain, was done by Dr. Hodgson and he was found to be ready for DC with no significant medication changes and will have close follow up with Dr. Brown because he is interested in starting insulin. Labs and Pending Lab Test: Laboratory Tests 04/01/19 16:10: Glucometer 301H 04/01/19 21:00: Glucometer 429*H 04/02/19 05:15: White Blood Count 7.3, Red Blood Count 4.57, Hemoglobin 15.1, Hematocrit 42, Mean Corpuscular Volume 92, Mean Corpuscular Hemoglobin 33, Mean Corpuscular Hemoglobin Concent 36, Red Cell Distribution Width 12.4, Platelet Count 183, Mean Platelet Volume 10.3, Neutrophils (%) (Auto) 57, Lymphocytes (%) (Auto) 25, Monocytes (%) (Auto) 10, Eosinophils (%) (Auto) 7, Basophils (%) (Auto) 1, Neutrophils # (Auto) 4.2, Lymphocytes # (Auto) 1.8, Monocytes # (Auto) 0.8, Eosinophils # (Auto) 0.5H, Basophils # (Auto) 0.1, Sodium Level 136, Potassium Level 3.7, Chloride Level 102, Carbon Dioxide Level 21, Anion Gap 13, Blood Urea Nitrogen 20H, Creatinine 1.04, Estimat Glomerular Filtration Rate > 60, BUN/Creatinine Ratio 19, Glucose Level 277H, Calcium Level 8.8, Corrected Calcium 9.1, Total Bilirubin 0.6, Aspartate Amino Transf (AST/SGOT) 22, Alanine Aminotransferase (ALT/SGPT) 35, Alkaline Phosphatase 57, Total Protein 6.8, Albumin 3.6, Triglycerides Level 703H, Cholesterol Level 134, LDL Cholesterol Direct 32, VLDL Cholesterol 141H, HDL Cholesterol 17L 04/02/19 10:58: Glucometer 301H Home Meds Active Reported Aspirin EC (Aspirin) 81 Mg Tablet.dr 81 Mg PO DAILY Fish Oil 1,000 mg Capsule ([place] 3 Polyunsat Fatty Acids) 1,000 Mg Cap 1,000 Mg PO Q48H ALTERNATES WITH MULTIVITAMIN Multivitamins (Multivitamin) 1 Each Tablet 1 Tab PO Q48H ALTERNATES DAYS WITH FISH OIL Victoza 3-[place] (Liraglutide) 0.6 Mg/0.1 Ml Pen.injctr 1.8 Mg SC HS Omeprazole 20 Mg Capsule.dr 20 Mg PO DAILY Alprazolam 0.5 Mg Tablet 0.5 Mg PO BID PRN Atorvastatin Calcium 10 Mg Tablet 10 Mg PO DAILY Losartan-Hctz 100-25 mg Tab (Losartan/Hydrochlorothiazide) 1 Each Tablet 1 Tab PO DAILY Glimepiride 4 Mg Tablet 4 Mg PO BID Zyrtec-D Tablet (Cetirizine HCl/Pseudoephedrine) 1 Each Tab.er.12h 1 Tab PO Q12H PRN Assessment/Pt Instructions [facility] as scheduled Discharge Planning: <30 minutes discharge planning Discharge Instructions Discharge Diet: ADA Diet Activity as Tolerated: Yes Discharge Physical Examination Vital Signs Vital Signs Date Time Temp Pulse Resp B/P (MAP) Pulse Ox O2 Delivery O2 Flow Rate FiO2 04/02/19 08:00 Room Air 04/02/19 08:00 36.1 68 16 113/73 (86) 95 General Appearance: No Apparent Distress, WD/WN Respiratory: Lungs Clear Cardiovascular: Regular Rate, Rhythm Allergies: Coded Allergies: No Known Drug Allergies (Unverified , 04/03/15) Discharge Summary Date of Admission Mar 31, 2019 at 14:25 Date of Discharge Discharge Date: Apr 02, 2019 Admission Diagnosis Chest pain Abdominal pain Anxiety HTN DM HLP Obesity MENG Discharge Diagnosis Monitor pain EGD EST (1) Chest pain Status: Acute Clinical Quality Measures AMI/AHF: ASA po Prior to arrival: Yes DVT/VTE Risk/Contraindication: Risk Factor Score Per Nursin RFS Level Per Nursing on Admit: 2=Moderate PORSCHE ALLISON DO Apr 02, 2019 11:25 POS
--- NOTE | 2019-04-02 11:50 | Progress Note - Cardiology ---
Cardiology SOAP Progress Note Subjective: C/p essentially nonexistent, he says No palp or syncope or shortness of breath Objective: I&O/Vital Signs 04/02/19 04/02/19 04/02/19 04/02/19 00:57 04:00 08:00 08:00 Temp 36.9 37.1 36.1 Pulse 51 76 68 Resp 18 18 16 B/P (MAP) 105/66 (79) 121/71 (88) 113/73 (86) Pulse Ox 96 96 95 O2 Delivery Room Air Room Air Room Air Room Air 04/02/19 00:00 Intake Total 1000 ml Balance 1000 ml Weight (Pounds): 262 Weight (Ounces): 1.0 Weight (Calculated Kilograms): 118.829995 Constitutional: AAO x 3, well-developed, well-nourished Respiratory: No accessory muscle use, No respiratory distress; chest expansion is symmetric, chest is bilaterally symmetric, lungs clear to auscultation Cardiovascular: regular rate-rhythm; No JVD Gastrointestional: No tender; soft, round, audible bowel sounds Extremities: no lower extremity edema bilateral Neurologic/Psychiatric: grossly intact, power is 5/5 both on sides Skin: No rash on exposed areas, No ulcerations on exposed areas Results/Procedures: Labs Laboratory Tests 04/01/19 16:10: Glucometer 301H 04/01/19 21:00: Glucometer 429*H 04/02/19 05:15: White Blood Count 7.3, Red Blood Count 4.57, Hemoglobin 15.1, Hematocrit 42, Mean Corpuscular Volume 92, Mean Corpuscular Hemoglobin 33, Mean Corpuscular Hemoglobin Concent 36, Red Cell Distribution Width 12.4, Platelet Count 183, Mean Platelet Volume 10.3, Neutrophils (%) (Auto) 57, Lymphocytes (%) (Auto) 25, Monocytes (%) (Auto) 10, Eosinophils (%) (Auto) 7, Basophils (%) (Auto) 1, Neutrophils # (Auto) 4.2, Lymphocytes # (Auto) 1.8, Monocytes # (Auto) 0.8, Eosinophils # (Auto) 0.5H, Basophils # (Auto) 0.1, Sodium Level 136, Potassium Level 3.7, Chloride Level 102, Carbon Dioxide Level 21, Anion Gap 13, Blood Urea Nitrogen 20H, Creatinine 1.04, Estimat Glomerular Filtration Rate > 60, BUN/Creatinine Ratio 19, Glucose Level 277H, Calcium Level 8.8, Corrected Calcium 9.1, Total Bilirubin 0.6, Aspartate Amino Transf (AST/SGOT) 22, Alanine Aminotransferase (ALT/SGPT) 35, Alkaline Phosphatase 57, Total Protein 6.8, Albumin 3.6, Triglycerides Level 703H, Cholesterol Level 134, LDL Cholesterol Direct 32, VLDL Cholesterol 141H, HDL Cholesterol 17L 04/02/19 10:58: Glucometer 301H Laboratory Tests 03/31/19 11:50 04/01/19 05:30 04/02/19 05:15 A/P: Assessment: Chest pain of undetermined etiology (costochondritis suspected) HTN HLD - statin tx MPI on 04/01/19: no ischemia, no infarction, LVEF 75% Echo of 04/01/19: LVEF 60-65% Reports h/o stress test at [facility] approx 5 years ago - reports it was normal Reports h/o cardiac CT at [facility] approx 4 years ago - reports it was OK Pipe tobacco use - cessation advised DM 2 H/O colon resection approx 3 years ago d/t diverticulitis Plan: * We again reviewed his CV w/u with him * We answered CV-related questions * Oupt card f/u is recommended in 2 weeks post-discharge (or earlier if needed) Clinical Quality Measures AMI/AHF: ASA po Prior to arrival: Yes PATTIE SÁNCHEZ MD FACP [facility] CCDS Apr 02, 2019 11:50 POS
[2019-04-02] MEDS ORDERED: HURRICAINE EXT TUBE (BENZOCAINE) ONE (12:09)
[2019-04-02] MEDS ORDERED: LACTATED RINGERS 1,000 ML IV ONE (12:13)
[2019-04-02] MEDS ORDERED: proPOfol 200 MG/20 ML (DIPRIVAN) VIAL IV ONE (12:17)
[2019-04-02] MEDS ORDERED: MIDAZOLAM 2 MG/2 ML (VERSED) VIAL ONE (12:17)
--- NOTE | 2019-04-02 12:38 | Progress Note-Post Operative ---
Post-Operative Progess Note Surgeon (s)/Rn Lvn (s) Surgeon NOHEMI BEACH DO Rn Lvn: NA Pre-Operative Diagnosis chest pain Post-Operative Diagnosis Gastritis Procedure & Operative Findings Date of Procedure 04/02/19 Procedure Performed/Findings EGD biopsies Anesthesia Type Per [facility] Estimated Blood Loss Estimated blood loss (mL): None Specimens/Packing Specimens Removed Antrum, Body and GE biopsies NOHEMI BEACH DO Apr 02, 2019 12:38 POS
[2019-04-02] MEDS ORDERED: PANT40TA2 PO (12:40)
[2019-04-02] MEDS ORDERED: SUCR1TAB36 PO (12:40)
[2019-04-02] MEDS ORDERED: HURRICAINE EXT TUBE (BENZOCAINE) XX ONE (12:45)
--- NOTE | 2019-04-02 17:06 | OPERATIVE REPORT ---
DATE OF SERVICE: 04/02/2019 PREOPERATIVE DIAGNOSIS: Chest pain. POSTOPERATIVE DIAGNOSIS: Gastritis. PROCEDURE PERFORMED: Esophagogastroduodenoscopy with biopsies. SURGEON: Nohemi Hodgson DO ANESTHESIA: Per MDA. ESTIMATED BLOOD LOSS: None. COMPLICATIONS: None. INDICATIONS: The patient is a 54-year-old male with chest pain and was recommended to have EGD performed for further evaluation. He understands risks and benefits of procedure and wished to proceed with procedure. Consent was signed in the chart. DESCRIPTION OF PROCEDURE: The patient was taken to the endoscopy suite, placed in left lateral recumbent position. Timeout was performed. Scope was inserted in mouth, down the esophagus, stomach and into the duodenum without difficulty. There were no polyps, mass or ulcerations within the duodenum. Scope was slowly retracted back into the stomach, which was further insufflated. Erythematous changes consistent with gastritis were present. Biopsy of the antrum and body were obtained. Scope was retroflexed noting no other pathology. Scope was returned to its normal position, slowly withdrawn to the distal esophagus, which had normal appearance. Biopsy of the GE junction was obtained. Scope was then slowly retracted back to completely remove noting no other pathology. The patient tolerated procedure well without any complications. He was taken to recovery room in stable condition. RECOMMENDATIONS: The patient started on Protonix 40 mg daily and Carafate 1 gram four times a day. The patient is to follow up in 2 weeks. Further recommendations pending biopsy results. Job ID: [id number] DocumentID: [id number] Dictated Date: 04/02/2019 12:43:07 Missile Inspector Preflight Date: 04/02/2019 17:04:59 Dictated By: NOHEMI HODGSON DO
== END 2019-04-02 13:30 | disposition home or self-care (01) ==
LOC: EDUNIT# 11:33 → ER FS 11:36 → 4TH 14:25 → UNDOADMOB 14:25 → SDC 15:30 → 4TH 15:30 → UNDODISOB 04-02 13:30 → SDC 04-02 13:30
PROVIDERS: ATTEND Internal Medicine
DX: R07.9 Chest pain, unspecified (principal); K59.09 Other constipation; I10 Essential (primary) hypertension; G47.33 Obstructive sleep apnea (adult) (pediatric); J30.9 Allergic rhinitis, unspecified; E78.00 Pure hypercholesterolemia, unspecified; E11.9 Type 2 diabetes mellitus without complications; E66.9 Obesity, unspecified; F41.9 Anxiety disorder, unspecified; E78.5 Hyperlipidemia, unspecified; K21.9 Gastro-esophageal reflux disease without esophagitis; Z79.82 Long term (current) use of aspirin; Z79.84 Long term (current) use of oral hypoglycemic drugs; Z90.49 Acquired absence of other specified parts of digestive tract; Z87.891 Personal history of nicotine dependence; Z68.35 Body mass index [BMI] 35.0-35.9, adult; Z79.899 Other long term (current) drug therapy; Z82.49 Family history of ischemic heart disease and other diseases of the circulatory system; Z80.1 Family history of malignant neoplasm of trachea, bronchus and lung
CPT/HCPCS: 36415; 71045; 78452; 80053; 80061; 82962; 83690; 83735; 83880; 84484; 85025; 85610; 85730; 93005; 93017; 93041; 93306; G0378